=== PATIENT | male | born 1950 | race Caucasian/White ===

== ENCOUNTER 2020-04-22 09:11 | Outpatient (REF) | payer MEDICARE, SELFPAY ==
[2020-04-22 12:13] LABS: Alanine Aminotransferase 13 U/L (0-40); Alkaline Phosphatase 86 U/L (39-117); Anion Gap 15 (12-20); Aspartate Amino Transferase 16 U/L (5-37); Bilirubin Total 0.6 mg/dL (0.0-1.0); Blood Urea Nitrogen 15 mg/dL (9-16); Calcium 9.2 mg/dL (8.4-10.2); Carbon Dioxide 24 mmol/L (22-29); Chloride 102 mmol/L (96-108); Cholesterol 201 mg/dL; Estimated Glomerular Filt Rate > 60; Glucose Fasting 138 mg/dL (60-99); HDL Cholesterol 42 mg/dL; LDL Cholesterol Calculated 142 mg/dl; Potassium 4.4 mmol/l (3.3-5.1); Sodium 137 mmol/L (135-145); Total Protein 7.3 g/dL (6.5-8.0); Triglycerides 87 mg/dL
[2020-04-22 12:37] LABS: Estimated Average Glucose 140 mg/dL; Hemoglobin A1c % 6.5 %
[2020-04-22 19:42] LABS: Creatinine Urine 170.85 mg/dL; Microalbum/Creatinine Ratio Ur 42.7 ug/mg cr
[2020-04-28 17:47] LABS: Testosterone, Free 43.5 pg/mL (35.0-155.0); Testosterone, Total 223 ng/dL (250-1100)
== END 2020-04-22 09:12 | disposition home or self-care (01) ==
LOC: HO.MANLR 09:11
PROVIDERS: PCP Internal Medicine; Visit Provider Internal Medicine
DX: E11.9 Type 2 diabetes mellitus without complications (principal); E29.1 Testicular hypofunction
CPT/HCPCS: 36415; 80053; 80061; 82043; 83036; 84402; 84403

== ENCOUNTER 2020-06-08 09:14 | Outpatient (REF) | payer MEDICARE, SELFPAY ==
[2020-06-08 11:47] LABS: Estimated Average Glucose 143 mg/dL; Hemoglobin A1c % 6.6 %
[2020-06-15 11:02] LABS: Testosterone, Total 194 ng/dL (250-1100)
== END 2020-06-08 09:15 | disposition home or self-care (01) ==
LOC: HO.MANLR 09:14
PROVIDERS: PCP Internal Medicine; Visit Provider Internal Medicine
DX: E11.9 Type 2 diabetes mellitus without complications (principal); E29.1 Testicular hypofunction
CPT/HCPCS: 36415; 83036; 84402; 84403

== ENCOUNTER 2020-09-13 08:24 | Outpatient (REF) | payer MEDICARE, SELFPAY ==
[2020-09-13 11:59] LABS: Creatinine Urine 26.55 mg/dL; Microalbum/Creatinine Ratio Ur 161.9 ug/mg cr
[2020-09-13 12:06] LABS: Alanine Aminotransferase 16 U/L (0-40); Albumin Level 4.2 g/dL (3.5-5.0); Alkaline Phosphatase 102 U/L (39-117); Anion Gap 16 (12-20); Aspartate Amino Transferase 24 U/L (5-37); Blood Urea Nitrogen 10 mg/dL (9-16); Calcium 9.5 mg/dL (8.4-10.2); Carbon Dioxide 24 mmol/L (22-29); Chloride 102 mmol/L (96-108); Cholesterol 123 mg/dL; Estimated Glomerular Filt Rate > 60; Glucose Fasting 159 mg/dL (60-99); HDL Cholesterol 50 mg/dL; LDL Cholesterol Calculated 60 mg/dl; Potassium 4.1 mmol/L (3.3-5.1); Sodium 138 mmol/L (135-145); Total Protein 7.6 g/dL (6.5-8.0); Triglycerides 67 mg/dL
[2020-09-13 12:17] LABS: Estimated Average Glucose 134 mg/dL; Hemoglobin A1c % 6.3 %
[2020-09-18 09:21] LABS: Testosterone, Free 33.5 pg/mL (35.0-155.0); Testosterone, Total 236 ng/dL (250-1100)
== END 2020-09-13 08:25 | disposition home or self-care (01) ==
LOC: HO.MANLR 08:24
PROVIDERS: PCP Internal Medicine; Visit Provider Internal Medicine
DX: E11.9 Type 2 diabetes mellitus without complications (principal); E29.1 Testicular hypofunction
CPT/HCPCS: 36415; 80053; 80061; 82043; 83036; 84402; 84403

== ENCOUNTER 2020-12-20 10:49 | Outpatient (REF) | payer MEDICARE, SELFPAY ==
[2020-12-20 13:09] LABS: Estimated Average Glucose 146 mg/dL; Hemoglobin A1c % 6.7 %
== END 2020-12-20 10:50 | disposition home or self-care (01) ==
LOC: HO.MANLDS 10:49
PROVIDERS: PCP Internal Medicine; Visit Provider Internal Medicine
DX: E29.1 Testicular hypofunction (principal)
CPT/HCPCS: 36415; 83036

== ENCOUNTER 2021-03-27 09:31 | Outpatient (REF) | payer MEDICARE, SELFPAY ==
[2021-03-27 11:05] LABS: Estimated Average Glucose 148 mg/dL; Hemoglobin A1c % 6.8 %
[2021-03-27 11:37] LABS: Alanine Aminotransferase 20 U/L (0-40); Albumin Level 3.8 g/dL (3.5-5.0); Alkaline Phosphatase 85 U/L (39-117); Anion Gap 13 (12-20); Aspartate Amino Transferase 21 U/L (5-37); Bilirubin Total 0.8 mg/dL (0.0-1.0); Blood Urea Nitrogen 18 mg/dL (9-16); Calcium 9.3 mg/dL (8.4-10.2); Carbon Dioxide 23 mmol/L (22-29); Chloride 106 mmol/L (96-108); Cholesterol 122 mg/dL; Estimated Glomerular Filt Rate > 60; Glucose Fasting 150 mg/dL (60-99); HDL Cholesterol 40 mg/dL; LDL Cholesterol Calculated 65 mg/dl; Potassium 4.4 mmol/L (3.3-5.1); Sodium 138 mmol/L (135-145); Total Protein 7.4 g/dL (6.5-8.0); Triglycerides 87 mg/dL
[2021-03-27 18:33] LABS: Creatinine Urine 152.73 mg/dL; Microalbum/Creatinine Ratio Ur 43.2 ug/mg cr
[2021-03-29 06:12] LABS: Sex Hormone Binding Globulin 36 nmol/L (22-77)
[2021-04-03 14:32] LABS: Testosterone, Free 31.2 pg/mL (30.0-135.0); Testosterone, Total 212 ng/dL (250-1100)
== END 2021-03-27 09:32 | disposition home or self-care (01) ==
LOC: HO.MANLDS 09:31
PROVIDERS: PCP Internal Medicine; Visit Provider Internal Medicine
DX: E11.9 Type 2 diabetes mellitus without complications (principal); E29.1 Testicular hypofunction
CPT/HCPCS: 36415; 80053; 80061; 82043; 83036; 84270; 84402; 84403

== ENCOUNTER 2021-08-01 10:00 | Outpatient (REF) | payer MEDICARE, SELFPAY ==
[2021-08-01 11:42] LABS: Estimated Average Glucose 148 mg/dL; Hemoglobin A1c % 6.8 %
[2021-08-06 16:05] LABS: Testosterone, Free 28.9 pg/mL (30.0-135.0); Testosterone, Total 185 ng/dL (250-1100)
== END 2021-08-01 10:01 | disposition home or self-care (01) ==
LOC: HO.MANLDS 10:00
PROVIDERS: PCP Internal Medicine; Visit Provider Internal Medicine
DX: E11.9 Type 2 diabetes mellitus without complications (principal); E29.1 Testicular hypofunction
CPT/HCPCS: 36415; 83036; 84402; 84403

== ENCOUNTER 2021-11-01 09:59 | Outpatient (REF) | payer MEDICARE, SELFPAY ==
[2021-11-01 11:14] LABS: MANUAL DIFF FLAG NO
[2021-11-01 11:36] LABS: Basophils Absolute Auto 0.1 X10*3/uL (0.0-0.2); Basophils Percent Auto 1.1 % (0-2); Eosinophils Absolute Auto 0.5 X10*3/uL (0.0-0.4); Eosinophils Percent Auto 5.4 % (0-4); Hematocrit 40.1 % (42.0-52.0); Hemoglobin 13.6 g/dl (14.0-18.0); Imm Gran Abs Auto 0.03 X10*3/uL (0.00-0.03); Imm Gran Pct Auto 0.4 % (0.0-0.4); Lymphocytes Absolute Auto 2.2 X10*3/uL (1.2-4.9); Lymphocytes Percent Auto 26.2 % (20-40); Mean Corpuscular HGB Conc 33.9 g/dl (31.0-36.0); Mean Corpuscular Hemoglobin 28.8 pg (27.0-33.0); Mean Corpuscular Volume 84.8 fL (80.0-98.0); Mean Platelet Volume 10.8 fL (9.4-12.4); Monocytes Absolute Auto 0.8 X10*3/uL (0.1-1.2); Monocytes Percent Auto 9.1 % (2-11); Neutrophils Absolute Auto 4.8 x10*3/uL (2.0-8.3); Neutrophils Percent Auto 57.8 % (45-73); Platelet Count 349 X10*3/uL (160-400); Red Blood Count 4.73 X10*6/uL (4.60-5.80); Red Cell Distribution Width 14.6 % (11.0-16.0); White Blood Count 8.3 X10*3/uL (4.8-10.8)
[2021-11-01 11:37] LABS: Estimated Average Glucose 137 mg/dL; Hemoglobin A1c % 6.4 %
[2021-11-01 12:16] LABS: Alanine Aminotransferase 21 U/L (0-40); Albumin Level 4.1 g/dL (3.5-5.0); Alkaline Phosphatase 85 U/L (39-117); Anion Gap 14 (12-20); Aspartate Amino Transferase 25 U/L (5-37); Bilirubin Total 1.2 mg/dL (0.0-1.0); Blood Urea Nitrogen 15 mg/dL (9-16); Calcium 9.2 mg/dL (8.4-10.2); Carbon Dioxide 24 mmol/L (22-29); Chloride 105 mmol/L (96-108); Cholesterol 116 mg/dL; Estimated Glomerular Filt Rate > 60; Glucose Random 141 mg/dL (60-115); HDL Cholesterol 44 mg/dL; LDL Cholesterol Calculated 59 mg/dl; Potassium 4.8 mmol/L (3.3-5.1); Sodium 138 mmol/L (135-145); Total Protein 7.4 g/dL (6.5-8.0); Triglycerides 69 mg/dL
== END 2021-11-01 10:00 | disposition home or self-care (01) ==
LOC: HO.MANLDS 09:59
PROVIDERS: Visit Provider Internal Medicine
DX: Z12.5 Encounter for screening for malignant neoplasm of prostate (principal); E11.9 Type 2 diabetes mellitus without complications; I10 Essential (primary) hypertension
CPT/HCPCS: 36415; 80053; 80061; 83036; 84153; 85025

== ENCOUNTER 2022-04-04 10:58 | Outpatient (REF) | payer MEDICARE, SELFPAY ==
[2022-04-04 14:22] LABS: Estimated Average Glucose 140 mg/dL; Hemoglobin A1c % 6.5 %
[2022-04-04 14:29] LABS: Alanine Aminotransferase 26 U/L (0-40); Albumin Level 4.2 g/dL (3.5-5.0); Alkaline Phosphatase 92 U/L (39-117); Anion Gap 13 (12-20); Aspartate Amino Transferase 27 U/L (5-37); Bilirubin Total 0.9 mg/dL (0.0-1.0); Blood Urea Nitrogen 15 mg/dL (9-16); Calcium 9.3 mg/dL (8.4-10.2); Carbon Dioxide 26 mmol/L (22-29); Chloride 101 mmol/L (96-108); Cholesterol 118 mg/dL; Estimated Glomerular Filt Rate > 60; Glucose Random 189 mg/dL (60-115); HDL Cholesterol 45 mg/dL; LDL Cholesterol Calculated 58 mg/dl; Potassium 4.4 mmol/L (3.3-5.1); Sodium 136 mmol/L (135-145); Total Protein 7.6 g/dL (6.5-8.0); Triglycerides 79 mg/dL
[2022-04-04 14:53] LABS: Creatinine Urine 141.25 mg/dL; Microalbum/Creatinine Ratio Ur 152.9 ug/mg cr
[2022-04-11 14:18] LABS: Testosterone, Free 25.3 pg/mL (30.0-135.0); Testosterone, Total 234 ng/dL (250-1100)
== END 2022-04-04 10:59 | disposition home or self-care (01) ==
LOC: HO.MANLDS 10:58
PROVIDERS: Internal Medicine; Visit Provider Physician Assistant
DX: E11.9 Type 2 diabetes mellitus without complications (principal); E29.1 Testicular hypofunction
CPT/HCPCS: 36415; 80053; 80061; 82043; 83036; 84402; 84403

== ENCOUNTER 2022-07-03 10:39 | Outpatient (REF) | payer MEDICARE, SELFPAY ==
[2022-07-03 13:19] LABS: Estimated Average Glucose 157 mg/dL; Hemoglobin A1c % 7.1 %
[2022-07-09 11:03] LABS: Testosterone, Free 27.6 pg/mL (30.0-135.0); Testosterone, Total 196 ng/dL (250-1100)
== END 2022-07-03 10:40 | disposition home or self-care (01) ==
LOC: HO.MANLDS 10:39
PROVIDERS: Visit Provider Internal Medicine
DX: E11.9 Type 2 diabetes mellitus without complications (principal); E29.1 Testicular hypofunction
CPT/HCPCS: 36415; 83036; 84402; 84403

== ENCOUNTER 2022-10-10 08:48 | Outpatient (REF) | payer MEDICARE, SELFPAY ==
[2022-10-16 13:39] LABS: Testosterone, Free 25.1 pg/mL (30.0-135.0); Testosterone, Total 204 ng/dL (250-1100)
== END 2022-10-10 08:49 | disposition home or self-care (01) ==
LOC: HO.MANLDS 08:48
PROVIDERS: Visit Provider Physician Assistant
DX: I10 Essential (primary) hypertension (principal); Z12.5 Encounter for screening for malignant neoplasm of prostate; E11.9 Type 2 diabetes mellitus without complications
CPT/HCPCS: 36415; 80053; 80061; 83036; 84153; 84402; 84403; 85025

== ENCOUNTER 2023-02-05 09:20 | Outpatient (REF) | payer MEDICARE, SELFPAY ==
[2023-02-05 13:23] LABS: MANUAL DIFF FLAG NO
[2023-02-05 13:36] LABS: Basophils Absolute Auto 0.1 X10*3/uL (0.0-0.2); Eosinophils Absolute Auto 0.8 X10*3/uL (0.0-0.4); Eosinophils Percent Auto 7.6 % (0-4); Hematocrit 47.5 % (42.0-52.0); Hemoglobin 15.4 g/dl (14.0-18.0); Imm Gran Abs Auto 0.03 X10*3/uL (0.00-0.03); Imm Gran Pct Auto 0.3 % (0.0-0.4); Lymphocytes Absolute Auto 2.1 X10*3/uL (1.2-4.9); Lymphocytes Percent Auto 20.4 % (20-40); Mean Corpuscular HGB Conc 32.4 g/dl (31.0-36.0); Mean Corpuscular Hemoglobin 28.1 pg (27.0-33.0); Mean Corpuscular Volume 86.5 fL (80.0-98.0); Mean Platelet Volume 11.2 fL (9.4-12.4); Monocytes Absolute Auto 0.8 X10*3/uL (0.1-1.2); Monocytes Percent Auto 7.9 % (2-11); Neutrophils Absolute Auto 6.5 x10*3/uL (2.0-8.3); Neutrophils Percent Auto 62.8 % (45-73); Platelet Count 404 X10*3/uL (160-400); Red Blood Count 5.49 X10*6/uL (4.60-5.80); Red Cell Distribution Width 14.3 % (11.0-16.0); White Blood Count 10.4 X10*3/uL (4.8-10.8)
[2023-02-05 13:53] LABS: Alanine Aminotransferase 17 U/L (0-40); Albumin Level 4.2 g/dL (3.5-5.0); Alkaline Phosphatase 90 U/L (39-117); Anion Gap 18 (12-20); Aspartate Amino Transferase 21 U/L (5-37); Bilirubin Total 1.1 mg/dL (0.0-1.0); Blood Urea Nitrogen 12 mg/dL (9-16); Calcium 10.3 mg/dL (8.4-10.2); Carbon Dioxide 26 mmol/L (22-29); Chloride 101 mmol/L (96-108); Cholesterol 100 mg/dL (<200); Estimated Glomerular Filt Rate > 60; Glucose Random 133 mg/dL (60-115); HDL Cholesterol 35 mg/dL (>40); LDL Cholesterol Calculated 50 mg/dL (<100); Potassium 4.7 mmol/L (3.3-5.1); Sodium 140 mmol/L (135-145); Total Protein 8.4 g/dL (6.5-8.0); Triglycerides 75 mg/dL (<150)
[2023-02-05 14:12] LABS: Prostate Specific Antigen 0.27 ng/mL (<0.05-4.0)
[2023-02-10 15:09] LABS: Testosterone, Free 8.6 pg/mL (30.0-135.0); Testosterone, Total 85 ng/dL (250-1100)
== END 2023-02-05 09:21 | disposition home or self-care (01) ==
LOC: HO.MANLDS 09:20
PROVIDERS: Visit Provider Physician Assistant
DX: I10 Essential (primary) hypertension (principal); Z12.5 Encounter for screening for malignant neoplasm of prostate
CPT/HCPCS: 36415; 80053; 80061; 84153; 84402; 84403; 85025

== ENCOUNTER 2023-05-03 11:01 | Outpatient (REF) | payer MEDICARE, SELFPAY ==
[2023-05-03 13:13] LABS: MANUAL DIFF FLAG NO
[2023-05-03 13:30] LABS: Basophils Absolute Auto 0.1 X10*3/uL (0.0-0.2); Basophils Percent Auto 0.9 % (0-2); Eosinophils Absolute Auto 0.3 X10*3/uL (0.0-0.4); Eosinophils Percent Auto 3.2 % (0-4); Hematocrit 47.7 % (42.0-52.0); Hemoglobin 15.6 g/dl (14.0-18.0); Imm Gran Abs Auto 0.02 X10*3/uL (0.00-0.03); Imm Gran Pct Auto 0.2 % (0.0-0.4); Lymphocytes Absolute Auto 1.7 X10*3/uL (1.2-4.9); Lymphocytes Percent Auto 19.5 % (20-40); Mean Corpuscular HGB Conc 32.7 g/dl (31.0-36.0); Mean Corpuscular Hemoglobin 26.9 pg (27.0-33.0); Mean Corpuscular Volume 82.2 fL (80.0-98.0); Mean Platelet Volume 10.9 fL (9.4-12.4); Monocytes Absolute Auto 0.7 X10*3/uL (0.1-1.2); Monocytes Percent Auto 7.7 % (2-11); Neutrophils Absolute Auto 5.8 x10*3/uL (2.0-8.3); Neutrophils Percent Auto 68.5 % (45-73); Platelet Count 321 X10*3/uL (160-400); Red Cell Distribution Width 15.4 % (11.0-16.0); White Blood Count 8.5 X10*3/uL (4.8-10.8)
[2023-05-03 13:38] LABS: Alanine Aminotransferase 15 U/L (0-40); Albumin Level 3.9 g/dL (3.5-5.0); Alkaline Phosphatase 84 U/L (39-117); Anion Gap 18 (12-20); Aspartate Amino Transferase 24 U/L (5-37); Blood Urea Nitrogen 10 mg/dL (9-16); Calcium 9.3 mg/dL (8.4-10.2); Carbon Dioxide 22 mmol/L (22-29); Chloride 102 mmol/L (96-108); Cholesterol 91 mg/dL (<200); Estimated Average Glucose 137 mg/dL; Estimated Glomerular Filt Rate > 60; Glucose Random 119 mg/dL (60-115); HDL Cholesterol 35 mg/dL (>40); Hemoglobin A1c % 6.4 % (<6.0); LDL Cholesterol Calculated 41 mg/dL (<100); Potassium 3.8 mmol/L (3.3-5.1); Sodium 138 mmol/L (135-145); Total Protein 7.9 g/dL (6.5-8.0); Triglycerides 75 mg/dL (<150)
[2023-05-03 14:04] LABS: Prostate Specific Antigen 1.34 ng/mL (<0.05-4.0)
[2023-05-03 14:16] LABS: Creatinine Urine 155.64 mg/dL; Microalbum/Creatinine Ratio Ur 73.2 ug/mg cr (<30)
[2023-05-08 15:58] LABS: Testosterone, Free 417.4 pg/mL (30.0-135.0); Testosterone, Total 1624 ng/dL (250-1100)
== END 2023-05-03 11:02 | disposition home or self-care (01) ==
LOC: HO.MANLDS 11:01
PROVIDERS: Internal Medicine; Visit Provider Physician Assistant
DX: E11.9 Type 2 diabetes mellitus without complications (principal); I10 Essential (primary) hypertension; Z12.5 Encounter for screening for malignant neoplasm of prostate
CPT/HCPCS: 36415; 80053; 80061; 82043; 82570; 83036; 84153; 84402; 84403; 85025

== ENCOUNTER 2023-08-05 11:39 | Outpatient (REF) | payer MEDICARE, SELFPAY ==
[2023-08-05 13:11] LABS: MANUAL DIFF FLAG NO
[2023-08-05 13:22] LABS: Basophils Absolute Auto 0.1 X10*3/uL (0.0-0.2); Basophils Percent Auto 1.2 % (0-2); Eosinophils Absolute Auto 0.3 X10*3/uL (0.0-0.4); Eosinophils Percent Auto 4.2 % (0-4); Hematocrit 42.8 % (42.0-52.0); Hemoglobin 14.6 g/dl (14.0-18.0); Imm Gran Abs Auto 0.01 X10*3/uL (0.00-0.03); Imm Gran Pct Auto 0.2 % (0.0-0.4); Lymphocytes Absolute Auto 2.1 X10*3/uL (1.2-4.9); Lymphocytes Percent Auto 31.1 % (20-40); Mean Corpuscular HGB Conc 34.1 g/dl (31.0-36.0); Mean Corpuscular Hemoglobin 26.9 pg (27.0-33.0); Mean Corpuscular Volume 78.8 fL (80.0-98.0); Mean Platelet Volume 10.5 fL (9.4-12.4); Monocytes Absolute Auto 0.6 X10*3/uL (0.1-1.2); Monocytes Percent Auto 9.4 % (2-11); Neutrophils Absolute Auto 3.6 x10*3/uL (2.0-8.3); Neutrophils Percent Auto 53.9 % (45-73); Platelet Count 283 X10*3/uL (160-400); Red Blood Count 5.43 X10*6/uL (4.60-5.80); Red Cell Distribution Width 16.3 % (11.0-16.0); White Blood Count 6.6 X10*3/uL (4.8-10.8)
[2023-08-05 13:44] LABS: Estimated Average Glucose 154 mg/dL
[2023-08-05 14:10] LABS: Alanine Aminotransferase 20 U/L (0-40); Albumin Level 3.8 g/dL (3.5-5.0); Alkaline Phosphatase 75 U/L (39-117); Anion Gap 11 (12-20); Aspartate Amino Transferase 25 U/L (5-37); Blood Urea Nitrogen 11 mg/dL (9-16); Calcium 9.4 mg/dL (8.4-10.2); Carbon Dioxide 29 mmol/L (22-29); Chloride 101 mmol/L (96-108); Cholesterol 107 mg/dL (<200); Estimated Glomerular Filt Rate > 60; Glucose Random 138 mg/dL (60-115); HDL Cholesterol 51 mg/dL (>40); LDL Cholesterol Calculated 47 mg/dL (<100); Potassium 3.7 mmol/L (3.3-5.1); Sodium 137 mmol/L (135-145); Total Protein 7.6 g/dL (6.5-8.0); Triglycerides 45 mg/dL (<150)
[2023-08-05 14:32] LABS: Prostate Specific Antigen 0.59 ng/mL (<0.05-4.0)
[2023-08-09 21:37] LABS: Testosterone, Free 56.4 pg/mL (30.0-135.0); Testosterone, Total 338 ng/dL (250-1100)
== END 2023-08-05 11:40 | disposition home or self-care (01) ==
LOC: HO.MANLDS 11:39
PROVIDERS: Visit Provider Physician Assistant
DX: Z12.5 Encounter for screening for malignant neoplasm of prostate (principal); I10 Essential (primary) hypertension
CPT/HCPCS: 36415; 80053; 80061; 83036; 84153; 84402; 84403; 85025

== ENCOUNTER 2023-11-18 09:17 | Outpatient (REF) | payer MEDICARE, SELFPAY ==
[2023-11-19 07:53] LABS: Estimated Average Glucose 137 mg/dL; Hemoglobin A1c % 6.4 % (<6.0)
[2023-11-24 00:54] LABS: Testosterone, Free 26.6 pg/mL (30.0-135.0); Testosterone, Total 197 ng/dL (250-1100)
== END 2023-11-18 09:18 | disposition home or self-care (01) ==
LOC: HO.MANLDS 09:17
PROVIDERS: Visit Provider Internal Medicine
DX: E11.9 Type 2 diabetes mellitus without complications (principal)
CPT/HCPCS: 36415; 83036; 84402; 84403

== ENCOUNTER 2024-02-28 09:44 | Outpatient (REF) | payer MEDICARE, SELFPAY ==
[2024-02-28 13:32] LABS: Estimated Average Glucose 146 mg/dL; Hemoglobin A1C 200.1726 umol/L; Hemoglobin A1c % 6.7 % (<6.0)
== END 2024-02-28 09:45 | disposition home or self-care (01) ==
LOC: HO.MANLDS 09:44
PROVIDERS: Visit Provider Internal Medicine
DX: E11.9 Type 2 diabetes mellitus without complications (principal)
CPT/HCPCS: 36415; 83036

== ENCOUNTER 2024-06-01 11:33 | Outpatient (REF) | payer MEDICARE, SELFPAY ==
--- OUTSIDE RECORDS SUMMARY | 2024-06-01 13:21 | XMS_ITS | Data Portability ---
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) MDM MODERATE MUST MEET 2 OUT OF 3 ELEMENTS: PROBLEMS, DATA OR RISK ELEMENT 1: PROBLEMS ADDRESSED 1 OR MORE CHRONIC ILLNESS WITH EXACERBATION OR 2 OR MORE STABLE CHRONIC ILLNESSES OR 1 UNDIAGNOSED NEW PROBLEM OR 1 ACUTE ILLNESS W/SYMPTOMS OR 1 ACUTE COMPLICATED INJURY ELEMENT 2: DATA MUST MEET 1 OF 3 CATEGORIES CATEGORY 1: REVIEW OF PRIOR EXTERNAL NOTES, REVIEW OF RESULTS, ORDERING OF EACH TEST, ASSESSMENT REQUIRING INDEPENDENT HISTORIAN OR CATEGORY 2: INDEPENDENT INTERPRETATION OF TESTS BY ANOTHER PHYSICIAN OR SPECIALIST OR CATEGORY 3: DISCUSSION OF MGT OR TEST INTERPRETATION W/EXTERNAL PHYSICIAN OR SPECIALIST ELEMENT 3: RISK RISK OF COMPLICATIONS AND/OR MORBIDITY OR MORTALITY OF PATIENT MANAGEMENT PROVIDER MUST THOROUGHLY DOCUMENT EACH ELEMENT THAT IS COVERED Not available 08/09/2023 09:52:02 11/20/2023 11/20/2023 Patient presente d to office today for their Medicare Annual Wellness Visit. Education was provided on healthy nutrition, including a diet rich in fruits and vegetables, minimizing simple carbohydrates, salt, and saturated fats. Encouraged regular cardiovascular exercise such as walking at least 30 minutes daily, 5 times per week. Emphasized preventive health measures and educated pt on fall prevention and community-based lifestyle interventions to help reduce health risks and promote healthy living. 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) MDM MODERATE MUST MEET 2 OUT OF 3 ELEMENTS: PROBLEMS, DATA OR RISK ELEMENT 1: PROBLEMS ADDRESSED 1 OR MORE CHRONIC ILLNESS WITH EXACERBATION OR 2 OR MORE STABLE CHRONIC ILLNESSES OR 1 UNDIAGNOSED NEW PROBLEM OR 1 ACUTE ILLNESS W/SYMPTOMS OR 1 ACUTE COMPLICATED INJURY ELEMENT 2: DATA MUST MEET 1 OF 3 CATEGORIES CATEGORY 1: REVIEW OF PRIOR EXTERNAL NOTES, REVIEW OF RESULTS, ORDERING OF EACH TEST, ASSESSMENT REQUIRING INDEPENDENT HISTORIAN OR CATEGORY 2: INDEPENDENT INTERPRETATION OF TESTS BY ANOTHER PHYSICIAN OR SPECIALIST OR CATEGORY 3: DISCUSSION OF MGT OR TEST INTERPRETATION W/EXTERNAL PHYSICIAN OR SPECIALIST ELEMENT 3: RISK RISK OF COMPLICATIONS AND/OR MORBIDITY OR MORTALITY OF PATIENT MANAGEMENT PROVIDER MUST THOROUGHLY DOCUMENT EACH ELEMENT THAT IS COVERED Not available 02/28/2024 09:31:19 Plan of Treatment Reminders Order Date Submit Date Provider Last Modified By Organization Details Last Modified Time Details Appointments FOLLOW UP 15 2024 09:15A M DR QUINTANA Not available Not available Not available MEDICARE ANNUAL WELLNESS 2024 10:00A M DR QUINTANA Not available Not available Not available Lab HbA1c (hemoglob in A1c), blood 2023 [facility], [address] [place] [address], [id number], 02/28/2024 09:34:08 hemoglobi n, gastroint estinal, stool 2023 024 [facility], [address] [place] [address], [id number], 03/03/2024 08:25:13 CBC w/ auto diff 2023 024 [facility], [address] [place] [address], [id number], 02/26/2024 13:00:16 CMP, serum or plasma 2023 024 [facility], [address] [place] [address], [id number], 02/26/2024 13:00:16 Referral None recorded. Procedures None recorded. Surgeries None recorded. Imaging US, scrotum - possible hernia into the scrotum? vs malignanc y 2023 024 [facility], [address] [place], [address], 05/22/2023 10:21:22 Medication Orders None recorded. Patient TargetsNo targets recorded. Patient Instructions Encounter Date Encounter Id Patient Instructions Last Modified By Organization Details Last Modified Time 08/09/2023 [id number] type 2 diabetes: care instructions Not available 08/09/2023 09:53:37 11/20/2023 [id number] leg and ankle edema: care instructions Not available 11/20/2023 09:59:51 stroke: care instructions Not available 11/20/2023 09:59:51 high blood pressure: care instructions Not available 11/20/2023 09:59:51 learning about high blood pressure Not available 11/20/2023 09:59:51 advance care planning: care instructions [email or web address] Not available 11/20/2023 09:59:51 Discussed and explained advance directives such as standard forms to the {{patient* caregi pratibha patient and caregiver}}. Face to face discussion lasted for a duration of 10___ minutes. Not available 11/20/2023 09:59:42 02/28/2024 [id number] stroke: care instructions Not available 02/28/2024 09:33:01 Reason for Referral None Reported. Results Created Date Observation Date Name Description Value Unit Range Abnormal Flag Note LastModifiedBy Organization Detail LastModifiedTime 05/23/19 24 05/23/2023 US, arelyot um No observ ation record ed. [facility] [address] [place], [address], 05/24/2023 09:06:15 Result Notes None recorded. 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 27389996 Active 2019 Not Available [facility] 2 12:45:13 Impaired fasting glycemia 218041670 Completed 201905/31/2020 William Quintana, DO [address] [place], [address], [facility] 1 11:56:05 Diabetes mellitus 73909609 Active 2020 type 2 diabetes , last check 05/07/20 was 6.7% Not Available [facility] 2 12:45:13 Testoste sherice level below referenc e range 857589005 Active 2021 William Quintana, DO [address] [place] [address], [address], [facility] 2 14:52:08 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 264130479 Active 2020 HELEN WILLSON [address] [place] [address], [address], [facility] 2 11:08:00 Type 2 diabetes mellitus without complica tion 573295897 Active 2023 William Quintana, DO [address] [place] [address], [address], [facility] 4 09:56:16 Cerebrov ascular accident 948822804 Active 2023 William Quintana, DO [address] [place] [address], [address], [facility] 4 09:56:16 Benign prostati c hyperpla chiqui 172686252 Active 2023 William Quintana, DO [address] [place] [address], [address], [facility] 4 09:56:35 Pain in testicle 55907275 Active 2023 HELEN WILLSON [address] [place], [address], [facility] 4 11:57:16 Epididym itis 18974134 Active 2023 HELEN WILLSON [address] [place] [address], [address], [facility] 4 13:22:48 Hydrocel e of testis 22602179 Active 2023 HELEN WILLSON [address] [place], [address], [facility] 4 13:58:43 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 screenin g 152555402 Active 2023 William Quintana, DO [address] [place] [address], [address], [facility] 4 22:01:44 Bursitis of olecrano n of right elbow 3131751407 36294 Active 2023 William Quintana DO [address] [place] [address], [address], [facility] 4 12:40:58 Effusion of olecrano n bursa of right elbow 7754353960 960881 Active 2023 William Quintana DO [address] [place] [address], [address], [facility] 4 12:41:24 [facility]ia [facility] hyperten rusty 97512637 Active 2017 Not Available [facility] 2 12:45:13 Transien t ischemia 36970388 Active 2017 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 , date unknown) Not Available [facility] 2 12:45:13 Hypergly cemia 55756879 Completed 201708/04/2018 William Quintana DO [address] [place] [address], [address], [facility] 9 12:38:54 Impaired fasting glycemia 135315428 Completed 201708/04/2018 William Quintana DO [address] [place] [address], [address], [facility] 1 11:56:05 Disorder of lumbar disc 136095811 Active 2017 L1-L2 disc disease, s/p surgery Not Available [facility] 2 12:45:13 Hypogona dism 89860730 Active 2017 Not Available [facility] 2 12:45:13 Gout 67385607 Active 2017 Not Available [facility] 2 12:45:13 Obstruct edith sleep apnea syndrome 55245511 Active 2017 Not Available [facility] 2 12:45:13 Problem Notes None recorded. Procedures Surgical History Date Name Laterality Status Provider Name and Address Organization Details Recorded Time 5 Colonoscopy completed Hernandez Quintana [facility] 05/06/2024 14:08:34 2 Cataract Surgery completed Latonia Lafleur [facility] 02/03/2024 09:56:24 0 Colonoscopy completed Loulou Zavala [facility] 03/23/2019 08:44:34 Imaging Results Imaging Date Name Status LastModified by Organiz ation Details LastModified Time 05/23/2023 US, scrotum completed [email or web address] [place], [place] [address] [place], [address], 05/24/2023 09:06:15 Procedure Notes None recorded. Medical Equipment None Reported. Allergies Allergen ID Allergen Name Allergen Category Reaction Reaction Severity Criticality Documentation Date Start Date Code Code System Note Provider Name and Address Organization Details Recorded Time 7750 Ozempic medicatio n diarrhea moderate Not available 05/08/2023 RxNorm Willima Quintana, DO [address] [place], [address], [facility] 4 10:00:03 Medications Name Sig Start Date Stop Date Status Note LastModified by Organization Details LastModified Time amoxicillin 500 mg capsule TAKE 1 CAPSULE BY MOUTH THREE TIMES DAILY FOR 7 DAYS 08/04 completed Not Available Not Available Not Available atorvastati n 80 mg tablet TAKE 1 TABLET(80 MG) BY MOUTH EVERY NIGHT AT BEDTIME active Not Available Not Available No t Available clindamycin HCl 300 mg capsule 09/06 completed Not Available Not Available Not Available lisinopril 20 mg-hydrochl orothiazide 12.5 mg tablet TAKE 1 TABLET BY MOUTH TWICE DAILY 01/05 completed Not Available Not Available Not Available azithromyci n 250 mg tablet 09/06 completed Not Available Not Available Not Available IBU 800 mg tablet Take 1 tablet 3 times a day by oral route for 30 days. 12/23 completed Not Available Not Available Not Available hydrocodone 5 mg-acetamin ophen 325 mg tablet Take 1 tablet every 6 hours by oral route as needed for 7 days. 01/05 completed Not Available Not Available Not Available meloxicam 15 mg tablet Take one tablet for pain. 12/23 completed Not Available Not Available Not Available lisinopril 20 mg tablet TAKE 1 TABLET BY MOUTH TWICE DAILY 2024 active Not Available Not Available Not Avai lable clopidogrel 75 mg tablet Take 1 tablet every day by oral route for 20 days. 05/08 completed Not Available Not Available Not Available ciprofloxac in 500 mg tablet TAKE 1 TABLET BY MOUTH EVERY 12 HOURS FOR 10 DAYS 08/08 completed Not Available Not Available Not Available morphine ER 30 mg tablet,exte nded release TAKE 1 TABLET BY MOUTH TWICE DAILY. DO NOT DRIVE WHILE TAKING THIS MEDICATIO N 05/13 completed Not Available Not Available Not Available aspirin 81 mg tablet,radha yed release TAKE 1 TABLET BY MOUTH EVERY DAY active Not Available Not Available No t Available terbinafine HCl 250 mg tablet TAKE 1 TABLET BY MOUTH EVERY DAY active Not Available Not Available No t Available tamsulosin 0.4 mg capsule TAKE 1 CAPSULE BY MOUTH EVERY DAY active Not Available Not Available No t Available amlodipine 10 mg tablet TAKE 1 TABLET BY MOUTH EVERY DAY 2024 active Not Available Not Available Not Avai lable morphine 30 mg immediate release tablet TAKE 1 TABLET BY MOUTH TWICE DAILY. DO NOT DRIVE WHILE TAKING THIS MEDICATIO N 05/13 completed Not Available Not Available Not Available indomethaci n 25 mg capsule TAKE 1 CAPSULE BY MOUTH THREE TIMES DAILY DIRECTED. DO NOT TAKE WITH PREDNISON E active Not Available Not Available No t Available indomethaci n 50 mg capsule 04/22 completed Not Available Not Available Not Available diclofenac sodium 75 mg tablet,radha yed release Take 1 tablet twice a day by oral route for 30 days. 12/30 completed Not Available Not Available Not Available halobetasol propionate 0.05 % topical cream APPLY TOPICALLY TO THE AFFECTED AREA TWICE DAILY NEEDED active Not Available Not Available No t Available colchicine 0.6 mg tablet 1 tab po tid for 7 days please 08/04 completed prn Not Available Not Available Not Available ketoconazol e 2 % topical cream APPLY TOPICALLY TO THE AFFECTED AREA 1 TIME AT BEDTIME active Not Available Not Available No t Available fluticasone propionate 50 mcg/actuati on nasal spray,suspe nsion 06/23 completed Not Available Not Available Not Available naproxen 500 mg tablet TK 1 T PO BID WITH FOOD 05/13 completed Not Available Not Available Not Available oxycodone 5 mg tablet TAKE 1 TABLET BY MOUTH EVERY 4 HOURS NEEDED FOR PAIN 08/04 completed Not Available Not Available Not Available testosteron e 12.5 mg/1.25 gram per pump actuation (1%) transdermal gel APPLY 2 PUMPS TOPICALLY TO UPPER ARM OR SHOULDER EVERY DAY active Not Available Not Available No t Available chlorhexidi ne gluconate 0.12 % mouthwash 09/06 completed Not Available Not Available Not Available testosteron e 20.25 mg/1.25 gram per pump act.(1.62 %) transdermal gel Apply 2 pumps every day by transderm . route for 30 days. 12/30 completed Not Available Not Available Not Available Easy Touch Alcohol Prep Pads USE DIRECTED PRIOR TO INJECTION active Not Available Not Available No t Available Jardiance 10 mg tablet TAKE 1 TABLET BY MOUTH EVERY DAY active Not Available Not Available No t Available Ozempic 1 mg/dose (4 mg/3 mL) subcutaneou s pen injector 05/08 completed Not Available Not Available Not Available Ozempic 0.25 mg or 0.5 mg (2 mg/3 mL) subcutaneou s pen injector INJECT 0.25 MG UNDER THE SKIN ONCE WEEKLY FOR 4 WEEKS THEN MAY INCREASE TO 0.5 MG ONCE WEEKLY TOLERATED 05/08 completed Not Available Not Available Not Available Vitals Date Recorded Body height Body mass index (BMI) Body weight Heart rate Oxygen saturation Oxygen saturation in Arterial blood by Pulse oximetry Systolic blood pressure Diastolic blood pressure Provider Name and Address Organization Details Last Updated DateTime 4 182.88 cm 36.3 kg/m2 836752. 76 g 89 /min 97 % 97 % 132 mm[Hg] 68 mm[Hg] Marie Miranda [facility] 4 11:43:09 Date Recorded Body height Body mass index (BMI) Body weight Heart rate Oxygen saturation Oxygen saturation in Arterial blood by Pulse oximetry Systolic blood pressure Diastolic blood pressure Provider Name and Address Organization Details Last Updated DateTime 4 182.88 cm 36.8 kg/m2 229236. 53 g 82 /min 94 % 94 % 148 mm[Hg] 78 mm[Hg] Marie Miranda [facility] 4 09:38:42 Date Recorded Body height Body mass index (BMI) Body weight Heart rate Oxygen saturation Oxygen saturation in Arterial blood by Pulse oximetry Systolic blood pressure Diastolic blood pressure Provider Name and Address Organization Details Last Updated DateTime 4 182.88 cm 36.1 kg/m2 209140. 57 g 72 /min 96 % 96 % 138 mm[Hg] 82 mm[Hg] William Quintana, DO [address] [place], [address] [place] [address] [facility] 4 09:40:56 Date Recorded Body height Body mass index (BMI) Body weight Oxygen saturation Oxygen saturation in Arterial blood by Pulse oximetry Heart rate Systolic blood pressure Diastolic blood pressure Provider Name and Address Organization Details Last Updated DateTime 4 182.88 cm 35.7 kg/m2 929644. 79 g 96 % 96 % 86 /min 128 mm[Hg] 74 mm[Hg] Marie Miranda [facility] 4 09:11:05 Social History Question Answer Notes LastModified by Organizat ion Details LastModified Time Tobacco Smoking Status Former Smoker Ximena fernandes [facility] 05/13/2020 11:53:50 What Was The Date Of Your Most Recent Tobacco Screening? 02/28/2024 [email or web address] Information not available 02/28/2024 How Much Tobacco Do You Smoke? No Information not available 09/16/2020 Do You Or Have You Ever Used Any Other Forms Of Tobacco Or Nicotine? No Information not available 07/04/2022 Sex: Unknown Functional Status None recorded. Mental Status None recorded. Family History Nothing Reported. Medical History No medical history recorded. Immunizations Vaccine Type Date Status Note Provider Nam e and Address Organization Details Recorded Time COVID-19, mRNA, LNP-S, PF, 30 mcg/0.3 mL dose 2 completed HELEN WILLSON [address] [place] [address], [address], [facility] 04/17/2021 12:56:45 Influenza, split virus, quadrivalent, preservative 2 completed HELEN WILLSON [address] [place] [address], [address], [facility] 04/17/2021 12:56:55 zoster recombinant 2 completed HELEN WILLSON [address] [place] [address], [address], [facility] 06/20/2021 13:35:13 COVID-19, mRNA, LNP-S, PF, 30 mcg/0.3 mL dose 1 completed William Quintana DO [address] [place] [address], [address], [facility] 09/16/2020 09:34:37 COVID-19, mRNA, LNP-S, PF, 30 mcg/0.3 mL dose 1 completed William Quintana DO [address] [place] [address], [address], [facility] 09/16/2020 09:34:46 Past Encounters Encounter ID Performer Location Encounter Start Date Encounter Closed Date Diagnosis/Indication Diagnosis SNOMED-CT Code Diagnosis ICD10 Code Diagnosis Note [id number] William Quintana DO [facility] [address] [place] [address],[place] [address] 09/06/2017 08:59:05 09/06/2017 10:05:36 Essential hypertension 05273027 I10 here for eval and doing well bp stable has lost 10lbs Impaired f asting glycemia 695735536 R73.01 a1c at 6.3 and doing well with wgt loss Transient ischemia 28495 009 I99.8 dquiet and asymptomat ic Obstructiv e sleep apnea syndrome 96166914 G47.33 doing ok uses every night only has 2-3 events at night Hypogonadism 83216425 E2 9.1 await results of testostero ne level will call with results [id number] William Quintana [facility] [address] [facility],[place] [address] 12/23/2017 13:48:03 12/23/2017 15:34:55 Impaired fasting glycemia 803891205 R73.01 a1c at 6.7 and doing well with a little wgt loss Essential hypertension 34147979 I10 here for eval and doing well bp stable has lost 10lbs Transient ischemia 41794 009 I99.8 now is quiet and asymptomat ic will cont to observe Edema of l ower extremity 439525970 R60.0 still some edema Tinea pedis 6822465 B35. 3 Impingemen t syndrome of shoulder region 623973483 M75.40 [id number] William Quintana [facility] [address] [place] [address],[place] [address] 04/22/2018 14:14:03 04/22/2018 16:00:12 Abdominal aortic aneurysm screening 539180673 Z13.6 will order next visit Screening for malignant neoplasm of colon 643428030 Z12.11 Essential hypertension 57869983 I10 here for eval and doing well bp stable has lost 10lbs Hypogonadism 37210723 E2 9.1 await results of testostero ne level will call with results Type 2 linda betes mellitus 87400639 E11.9 Pre-surger y evaluation 066946748 Z01.818 [id number] William Quintana [facility] [address] [facility],[place] [address] 08/04/2018 12:12:34 08/04/2018 14:03:11 Essential hypertension 71666103 I10 here for eval and doing well bp stable has lost 10lbs despite surgery bp stabel Edema of l ower extremity 969124159 R60.0 edema gone Type 2 linda betes mellitus 84171825 E11.9 [id number] William Quintana [facility] [address] [facility] [place] [address] 12/01/2018 09:57:46 12/01/2018 12:14:40 Type 2 diabetes mellitus 91190291 E11.9 much improved and is doing better eating better and is losing wgt a1c is 6.7 Essential hypertension 25998811 I10 here for eval and doing well bp stable has lost 10lbs despite surgery bp stable haviung lightheade dness will change to plain lisinopril and see if this is better Abdominal aortic aneurysm screening 397105290 Z13.6 will order next visit Hepatitis C screening 41 9145138 Z11.59 [id number] July PERNELL Baker [facility] [address] [facility],[place] [address] 12/30/2018 11:41:32 12/30/2018 12:15:42 Pain in right knee 8836245463 17443 M25.561 Gout 60477844 M10.9 will try colchicine and continue indomethac in prn will call in a couple days if not better then will try prednisone instead Essential hypertension 58787008 I10 mildly elevated ? pain Obstructiv e sleep apnea syndrome 18008898 G47.33 USES CPAP [id number] William Quintana [facility] [address] [facility] [address] 03/23/2019 10:25:13 03/23/2019 10:59:26 Type 2 diabetes mellitus 05620660 E11.9 much improved and is doing better eating better and is losing wgt a1c is 6.3 and was 7.2/ 6.7 Essential hypertension 72379388 I10 here for eval and doing well bp stable has lost 10lbs despite surgery bp stable haviung lightheade dness will change to plain lisinopril and see if this is better Abdominal aortic aneurysm screening 696389305 Z13.6 will order next visit Hepatitis C screening 41 3160677 Z11.59 Transient ischemia 21375 009 I99.8 now is quiet and asymptomat ic will cont to observe Obstructiv e sleep apnea syndrome 19640714 G47.33 doing ok uses every night only has 2-3 events at night [id number] William Quintana [facility] [address] [facility],[place] [address] 06/24/2019 09:46:00 06/24/2019 10:09:13 Type 2 diabetes mellitus 14591755 E11.9 much improved and is doing better eating better and is losing wgt a1c is 6.5 and was 6.7 Essential hypertension 83278800 I10 here for eval and doing well bp stable has lost 10lbs despite surgery bp stable having lightheade dness will change to plain lisinopril and see if this is better Edema of l ower extremity 802449586 R60.0 edema gone doing ok except for the shoulder Degenerati ve joint disease of shoulder region 74618760 M19.019 will need joint replacemen t as this joint is destroyed will provide him with a pain med for when it gets bad will give hydrocodon e on a prn basis only [id number] William Quintana DO [facility] [address] [facility] [address] 10/07/2019 09:04:03 10/07/2019 10:06:57 Type 2 diabetes mellitus 01104651 E11.9 Much improved with A1C at 6.2 due to weight loss and improved diet Microalbum in neg - already on ACEi Essential hypertension 48126317 I10 BP is stable and no more lightheade dness with med switch Edema of l ower extremity 365652424 R60.0 Stable [id number] William Quintana DO [facility] [address] [facility],[place] [address] 01/06/2020 09:47:30 01/06/2020 10:27:28 Essential hypertension 85493703 I10 BP is stable and no more lightheade dness with med switch Eczema 65112513 L30.9 will use prn Onychomyco sis of toenails 844471588 B35.1 encouraged to get pedicure [id number] HELEN WILLSON [facility] [address] [facility] [place] [address] 05/13/2020 11:48:29 05/13/2020 16:13:39 Gout 68133323 M10.9 Tobacco de pendence syndrome 96445579 F17.200 the patient stopped smoking on his own did not get the patches, so he just quit Transient cerebral ischemia 531889892 G45.9 Diabetes mellitus 453186 09 E11.9 [id number] William Quintana [facility] [address] [facility] [place],[facility], [place] [id number] 05/31/2020 11:31:14 05/31/2020 12:03:07 Left sided cerebral hemisphere cerebrovascular accident [id number] I63.9 he has recovered from this and he has quit smoking thank god bp is stable and he is overall doing better has already lost 10 lbs and no sypmptoms remain will cont on plavix for now Type 2 linda betes mellitus [id number] E11.9 his last test was a1c 6.7 here for rechk and we will follow this and expect it to be better as he has already lost 10 lbs Essential hypertension 92037242 I10 BP is stable and no more lightheade dness with med switch Edema of l ower extremity 364629314 R60.0 Stable no worsenein g [id number] William Quintana [facility] Internal [facility] [address] [facility] on [place] [address] 06/10/2020 09:20:50 06/10/2020 09:46:25 Essential hypertension 98377948 I10 BP is stable and no more lightheade dness no longer having palpitatio ns Diabetes mellitus 806199 09 E11.9 a1c is now down to 6.6 and he is doing significan tly better states is adjusting and is working hard noted that his feet are feeling much better has lost 10lbs so he is really trying still undergoing PT Obstructiv e sleep apnea syndrome 73404436 G47.33 doing ok uses every night only has 2-3 events at night Transient cerebral ischemia 406450965 G45.9 will be seeing neuro dr walker soon has not had any major symptoms as of late cont to work hard to turn things around [id number] William Quintana [facility] [address] [facility], ite [facility] [place] [address] 09/16/2020 09:29:16 09/16/2020 13:11:59 Essential hypertension 55449207 I10 BP is stable and no more lightheade dness no longer having palpitatio ns feelings are good no cp no sob Diabetes mellitus 543651 09 E11.9 a1c is now down to 6.3 and was 6.6 and he is doing significan tly better states is adjusting and is working hard noted that his feet are feeling much better had lost 10lbs so he is keping the wgt off Edema of l ower extremity 610212426 R60.0 Stable and is not having any edema right now [id number] William Quintana DO [facility] Internal Medicine [address] [facility], [place] [address] 12/23/2020 09:43:33 12/23/2020 13:00:52 Essential hypertension 51318037 I10 BP is stable and no more lightheade dness no longer having palpitatio ns feelings are good no cp no sob Diabetes mellitus 917582 09 E11.9 a1c is now 6.7 to 6.3 and was 6.6 and he is doing significan tly better states is adjusting and is working hard noted that his feet are feeling much better had lost 10lbs but gained back Edema of l ower extremity 169385434 R60.0 Stable and is not having any edema right now just at end of the day [id number] William Quintana DO [facility] Internal [facility] [address] [facility], it[address] [facility] [place] [address] 03/29/2021 08:30:53 03/29/2021 12:22:43 Diabetes mellitus 87001250 E11.9 a1c is now 6.8 6.7 to 6.3 and was 6.6 and he is doing significan tly better states is adjusting and is working hard noted that his feet are feeling much better had lost 10lbs but gained back Essential hypertension 29135946 I10 BP is stable and no more lightheade dness no longer having palpitatio ns feelings are good no cp no sob Edema of l ower extremity 576213155 R60.0 Stable and is not having any edema right now just at end of the day Gout 14892017 M10.9 stable and not having any outbreaks Tinea pedis 3134898 B35. 3 Eczema 79205189 L30.9 will use prn [id number] HELEN WILLSON [facility] Internal Medicine [address] [facility] [place] [address] 08/04/2021 14:44:38 08/04/2021 15:33:37 Pre-surgery evaluation 727019026 Z01.818 per the 2017 ACC cardiac risk factor evaluation (revised) he is cleared for the proposed cataract surgery and is considered low riskhe will cont his usual meds as dir Testostero ne level below reference range 793696221 R79.89 refill Renewal of prescription 184637247 Z76.0 Diabetes mellitus 043117 09 E11.9 a1c is now 6.8 6.7 to 6.3 and was 6.6 and he is doing significan tly better states is adjusting and is working hard noted that his feet are feeling much better had lost 10lbs but gained back 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 he has recovered from this and he has quit smoking bp is stable and he is overall doing better no sypmptoms remain will cont on plavix for now AMENDMENT: STROKE OCCURED ON 05/08/20; THE DIAGNOSIS WAS ADDED THE DAY OF THE PRE-OP, THE PATIENT DID NOT RECENTLY HAVE A STROKE AND IS STABLE FOR SURGERY [id number] William Quintana DO [facility] Internal Medicine [address] [facility] on [place] [place] [address] 11/06/2021 10:28:44 11/06/2021 11:22:37 Diabetes mellitus 15541680 E11.9 a1c is now 6.4 and 6.8 6.7 to 6.3 and was 6.6 and he is doing significan tly better states is adjusting and is working hard noted that his feet are feeling much better had lost 10lbs and kept it off Essential hypertension 66089190 I10 BP is stable and no more lightheade dness no longer having palpitatio ns feelings are good no cp no sob Hypogonadism 62311339 E2 9.1 await results of testostero ne level will call with results Active or passive immunization 119011178 Z23 advised for Tdap. pneumo, shingles [id number] [facility] [address] [facility],[place] [address] 04/06/2022 11:44:33 04/06/2022 14:56:25 Essential hypertension 69880325 I10 BP is stable and no more lightheade dness no longer having palpitatio ns feelings are good no cp no sob Hypogonadism 51812547 E2 9.1 await results of testostero ne level will call with results Diabetes mellitus 823397 09 E11.9 a1c is now 6.5 and prior 6.4 and 6.8 6.7 to 6.3 and was 6.6 and he is doing significan tly better states is adjusting and is working hard noted that his feet are feeling much better had lost 10lbs and kept it off [id number] William Quintana [facility] [address] [facility],[place] [address] 07/04/2022 10:18:43 07/04/2022 11:00:55 Testosterone level below reference range 750141604 R79.89 awaiting Diabetes mellitus 19140898 a1c is pending 6.5 and prior 6.4 and 6.8 6.7 to 6.3 and was 6.6 and he is doing significan tly better states is adjusting and is working hard noted that his feet are feeling much bettertrul icity 3mg samples given Essential hypertension 65244468 I10 BP is stable and no more lightheade dness no longer having palpitatio ns feelings are good no cp no sob Obstructiv e sleep apnea syndrome 94219464 G47.33 doing ok uses every night only has 2-3 events at night Left sided cerebral hemisphere cerebrovascular accident 657407420 I63.9 he has recovered from this and he has quit smoking bp is stable and he is overall doing better no sypmptoms remain will cont on plavix for now AMENDMENT: STROKE OCCURED ON 05/08/20; THE DIAGNOSIS WAS ADDED THE DAY OF THE PRE-OP, THE PATIENT DID NOT RECENTLY HAVE A STROKE AND IS STABLE FOR SURGERY Hepatitis C screening 41 4865071 Z11.59 will chk Advance care planning 71 1468218 Z71.89 done [id number] William Quintana [facility] [address] [facility],[place] [address] 10/15/2022 11:36:58 10/15/2022 12:34:05 Essential hypertension 74045021 I10 BP is stable and no more lightheade dness no longer having palpitatio ns feelings are good no cp no sob Diabetes mellitus 601000 E11.9 a1c is 6.4 he was 7.1 in june 6.5 and prior 6.4 and 6.8 6.7 to 6.3 and was 6.6 and he is doing significan tly better states is adjusting and is working hard noted that his feet are feeling much bettertrul icity or ozempic inj will hopefully be ordered by endocrinol ogist Screening for malignant neoplasm of colon 415247090 Z12.11 discussed he will be called Hepatitis C screening 41 0658966 Z11.59 will [facility] [address] [facility] [address] [facility],[place] [address] 02/08/2023 12:00:51 02/08/2023 13:29:26 Hypogonadism 34109039 E29.1 following endocrine Essential hypertension 27987526 I10 BP is stable and no more lightheade dness no longer having palpitatio ns feelings are good no cp no sob Diabetes mellitus 716349 E11. a1c is 6.4 he was 7.1 in june 6.5 and prior 6.4 and 6.8 6.7 to 6.3 and was 6.6 and he is doing significan tly better states is adjusting and is working hard noted that his feet are feeling much bettertrul icity or ozempic inj will hopefully be ordered by endocrinol ogist [id number] William Quintana [facility] Internal [facility] [address] [place] [address] 05/08/2023 09:27:17 05/08/2023 10:05:12 Type 2 diabetes mellitus without complication 149633475 E11.9 a1c is 6.4 still doing good Cerebrovas cular accident 433992079 I63.9 quiet and doing ok Diabetes mellitus 169884 09 E11.9 a1c is still 6.4 and doing ok 6.4 he was 7.1 in june 6.5 and prior 6.4 and 6.8 6.7 to 6.3 and was 6.6 and he is doing significan tly better states is adjusting and is working hard noted that his feet are feeling much bettertrul icity or ozempic inj will hopefully be ordered by endocrinol ogist Benign pro static hyperplasia 816260514 N40.1 [id number] HELEN WILLSON [facility] Internal [facility] [address] [facility], [place] [facility] [employer] [place] [place] [address] 05/20/2023 11:23:41 05/20/2023 12:12:07 Pain in testicle 26045697 N50.811 will need US to confirm hernia vs malignancy cannot exclude either possibilit ypt agrees to plan [id number] William Quintana DO [facility] Internal Medicine [address] [facility],[place] [address] 08/09/2023 09:32:50 08/09/2023 10:22:09 Type 2 diabetes mellitus without complication 972589764 E11.9 a1c is 7.0 still doing good we will rechk in 3 mo Essential hypertension 38015372 I10 BP is stable and no more lightheade dness no longer having palpitatio ns feelings are good no cp no sob Hypogonadism 26630251 E2 9.1 following endocrined oing better with the testostero ne [id number] William Quintana DO [facility] [address] [facility],[place] [address] 11/20/2023 09:32:12 11/20/2023 10:48:35 Adult health examination 965486664 Z00.00 doing ok no issues Screening for cardiovascular system disease 430561267 Z13.6 stable Screening for malignant neoplasm of colon 421059052 Z12.11 discussed he will be called Depression screening 171 049721 Z13.31 neg Cerebrovas cular accident 151342455 I63.9 quiet and doing ok Edema of l ower extremity 675376055 R60.0 Stable and is not having any edema right now just at end of the day Type 2 linda betes mellitus without complication 729151246 E11.9 a1c is 6.4 still doing good we will rechk in 3 mo Essential hypertension 60908967 I10 BP is stable and no more lightheade dness no longer having palpitatio ns feelings are good no cp no sob [id number] William Quintana, [facility] [address] [facility],[place] [address] 02/28/2024 08:58:32 02/28/2024 09:41:26 Diabetes mellitus 19671820 E11.9 a1c is pending was 6.4 and doing ok 6.4 he was 7.1 in june 6.5 and prior 6.4 and 6.8 6.7 to 6.3 and was 6.6 and he is doing significan tly better states is adjusting and is working hard noted that his feet are feeling much bettertrul icity or ozempic inj will hopefully be ordered by endocrinol ogist Edema of l ower extremity 031035655 R60.0 Stable and is not having any edema right now just at end of the day Essential hypertension 10869807 I10 BP is stable and no more lightheade dness no longer having palpitatio ns feelings are good no cp no sob Cerebrovas cular accident 001298978 I63.9 quiet and doing ok [id number] William Quintana, [facility] [address] [facility],[place] [address] 03/10/2024 12:15:57 03/10/2024 14:30:29 Effusion of olecranon bursa of right elbow 5189372616 087498 M71.821 well eileen aspiration and inj Health Concerns Section Related Observation LastModified by Organization Detai ls LastModified Time None Recorded Concern Status LastModified by Organization Details LastModified Time None Recorded Advance Directives Directive None Recorded Payers Encounter Date Sequence Insurance Name Policy Number Policy Hernandez Covered Member ID Hernandez Member ID Guarantor Name 05/20/2023 1 [employer]-ID: SECURE [id number] (MEDICARE REPLACEMENT PPO) [id number] Jose Miguel Avendano [id number] Jose Miguel Avendano 08/09/2023 1 [employer]-ID: SECURE BLUE (MEDICARE REPLACEMENT PPO) [id number] Gillespie J Verona [id number] 003 Gillespie Verona 11/20/2023 1 [employer]-ID: SECURE BLUE (MEDICARE REPLACEMENT PPO) [id number] Gillespie J Verona [id number] 003 Gillespie Verona 02/28/2024 1 [employer]-ID: SECURE BLUE (MEDICARE REPLACEMENT PPO) [id number] Gillespie J Juan Alberto [id number] 003 Gillespie Verona 03/10/2024 1 [employer]-ID: SECURE BLUE (MEDICARE REPLACEMENT PPO) [id number] Gillespie J Juan Alberto [id number] 003 Gillespie Verona Notes Date Note Type Note Provider Name and Address Organization Details Recorded Time 4 text/htm l c/o enlarged testicle the patient reports that he is having enlarged testiclespainful if he sits on it wrong but otherwise no painno n/v/d, testicular torsion unlikely the patient denies discharge, changes in urine, change in the color no pain with ejaculationno trauma or injury that he can rememberno fever, no chills, no N/V/D no new sexual partnershas not had sex in months per patient (has a long time GF) states this happened on Saturday that he noticed it very possible it could be hernia vs a mass/neoplasmagreed to HELEN WILLSON [address] [place] [address], [phone], [facility] 05/20/2023 12:03:53 4 text/htm l Care Management - DiabetesReported bypatient.Self Care:seeing eye doctor yearly for dilated eye exam; checking feet regularly; normal range of home blood sugars (in the low 100s); no side effects from medications Associated Symptoms:symptoms are usually well controlled; no fatigue; no dizziness; no excessive sweating; no headaches; no confusion; no increased thirst; no increased appetite; no increased urination; no blurred vision; no numbness of feet; no calluses on feetCare Management - HypertensionReported bypatient.Self Care:not under emotional stress Severity:symptoms are improving; does not interfere with daily activities Associated Symptoms:no dizziness; no lightheadedness; no chest pain; no shortness of breath; no palpitations; no edema; no calf muscle cramps; no blurred vision; no confusion; no headaches; no fatigue here for rechk and is doing ok overalldiscussed results in [id number] is 7was eval by radha who recc jardiance but he is holding off for now and is eating betterrelates he had been not eating greatno cp no sobrelates has been having occ trouble sleeping about once a week William Quintana DO [address] [place], [address], [facility] 08/09/2023 09:57:37 4 text/htm l Medicare Annual Wellness VisitReported bypatient.Diet and Nutrition:healthy diet Fracture Risk:no history of fractures; no recent explained fracture; no sudden unexplained fractures; no previous musculoskeletal injuries Physical Activity:exercises on a regular basis; recent increase in physical activity; good physical condition Depression Risk:never feels sad, empty, or tearful; no loss of interest in activities; no significant changes in weight; no sleep disturbances or insomnia; no agitation; no loss of energy; no feelings of worthlessness or guilt; no thoughts of suicide; no history of depression; no history of mood disorders Orientation:no disorientation to time; no disorientation to date; no disorientation to place Concentration and Memory:no decreased concentrating ability; no memory lapses or loss; does not forget words Speech/Motor difficulties:no speech difficulties; no difficulty expressing formulated concepts; no difficulty with fine manipulative tasks; no difficulty writing/copying; no slowed reaction time; does not knock things over when trying to pick them up Hearing:no loss of hearing Vision:no vision problems Activities of Daily Living:able to bathe with limited or no assistance; able to contol urination and bowels; able to dress with limited or no assistance; able to feed self with limited or no assistance; able to get out of chair or bed with limited or no assistance; able to groom with limited or no assistance; able to toilet with limited or no assistance Instrumental Activities of Daily Living:able to do house work with limited or no assistance; able to grocery shop with limited or no assistance; able to manage medications with limited or no assistance; able to manage money with limited or no assistance; able to prepare meals with limited or no assistance; able to use the phone with limited or no assistance Falls Risk Assessment:no frequent falls while walking; no fall in the past year; no fall since last visit; no dizziness/vertigo Home Safety:no unsafe emily hazzards; no unsafe stairs; no unsafe gas appliances; working smoke/CO detectors; wears protective head gear for biking/high velocity; use of seatbelts; practicing 'safer sex'; no vision or hearing loss while driving; no fire arms; has hand bars in the bathroom/shower; good lighting in the home William Quintana DO [address] [place] [address], [phone], [facility] 11/20/2023 10:01:18 4 text/htm l Care Management - DiabetesReported bypatient.Self Care:seeing eye doctor yearly for dilated eye exam; checking feet regularly; normal range of home blood sugars (in the low 100s); no side effects from medications Associated Symptoms:symptoms are usually well controlled; no fatigue; no dizziness; no excessive sweating; no headaches; no confusion; no increased thirst; no increased appetite; no increased urination; no blurred vision; no numbness of feet; no calluses on feetCare Management - HypertensionReported bypatient.Self Care:not under emotional stress Severity:symptoms are improving; does not interfere with daily activities Associated Symptoms:no dizziness; no lightheadedness; no chest pain; no shortness of breath; no palpitations; no edema; no calf muscle cramps; no blurred vision; no confusion; no headaches; no fatigue here for rechk and is doing ok overallrelates that he has been trying to eat wellhas noted a elbow swelling as of late very tender in certain spots William Quintana DO [address] [place] [address], [phone], [facility] 02/28/2024 09:39:03 4 text/htm l here for bursa drainage William Quintana DO [address] [place] [address], [phone], [facility] 03/10/2024 12:43:29
[2024-06-01 14:08] LABS: Estimated Average Glucose 140 mg/dL; Hemoglobin A1C 194.2997 umol/L; Hemoglobin A1c % 6.5 % (<6.0); Total Hemoglobin (HGBA1C) 4109.8682 umol/L
== END 2024-06-01 11:34 | disposition home or self-care (01) ==
LOC: HO.MANLDS 11:33
PROVIDERS: Visit Provider Internal Medicine
DX: E11.9 Type 2 diabetes mellitus without complications (principal)
CPT/HCPCS: 36415; 83036

== ENCOUNTER 2024-08-21 09:26 | Outpatient (REF) | payer MEDICARE, SELFPAY ==
--- OUTSIDE RECORDS SUMMARY | 2024-08-21 09:37 | XMS_ITS | Continuity of Care Document ---
Author Organization [place] - [facility], [facility] Address [address] [place] [address] Assessment Encounter Date Assessment Date Assessment LastModified by Organization Details LastModified Time 08/21/2024 08/21/2024 [id number] [place] [id number] (BOARD RUNNER) MDM MODERATE MUST MEET 2 OUT OF [...] EACH ELEMENT THAT IS COVERED Not available 08/21/2024 09:14:42 Plan of Treatment Reminders Order Date Submit Date Provider Last Modified By Organization Details Last Modified Time Details Appointments FOLLOW UP 15 2024 09:00A M DR QUINTANA Not available Not available Not available MEDICARE ANNUAL WELLNESS 2024 10:00A M DR QUINTANA Not available Not available Not available Lab CMP, serum or plasma 2024 025 [facility], [address] [place] [address], [place], [address], 08/21/2024 09:21:18 microalbu min, urine 2024 025 [facility], [address] [place] [address], [place], [address], 08/21/2024 09:21:18 lipid panel, serum 2024 025 [facility], [address] [place] [address], [place], [address], 08/21/2024 09:21:18 CBC w/ auto diff 2024 025 [facility], [address] [place] [address], [address], 08/21/2024 09:21:18 Referral None recorded. Procedures None recorded. Surgeries None recorded. Imaging None recorded. Medication Orders triamtere ne 37.5 mg-hydroc hlorothia zide 25 mg tablet 2024 025 [id number], [address] [place] [address], [id number], 08/21/2024 09:25:07 Patient TargetsNo targets recorded. Patient InstructionsNo instructions recorded. Reason for Referral None Reported. Problems Name Problem SNOMED Code Status Onset Date Resolution Date Notes Provider Name and Address Organization Details Recorded Time Edema of lower extremit y 107356241 Active 2017 Not Available [facility] 2 12:45:13 Osteoart hritis of shoulder region 54182246 Active 2019 Not Available [facility] 2 12:45:13 Impaired fasting glycemia 499474353 Completed 201905/31/2020 William Quintana DO [address] [place] [address], [address], [facility] 1 11:56:05 Diabetes mellitus 62326710 Active 2020 type 2 diabetes , last check 05/07/20 was 6.7% Not Available [facility] 2 12:45:13 Testoste sherice level below referenc e range 001597097 Active 2021 William Quintana DO [address] [place], [address], [facility] 2 14:52:08 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 791444714 Active 2020 HELEN WILLSON [address] [place] [address], [address], [facility] 2 11:08:00 Type 2 diabetes mellitus without complica tion 334068963 Active 2023 William Quintana DO [address] [place] [address], [address], [facility] 4 09:56:16 Cerebrov ascular accident 659119783 Active 2023 William Quintana DO [address] [place] [address], [address], [facility] 4 09:56:16 Benign prostati c hyperpla chiqui 428571109 Active 2023 William Quintana DO [address] [place] [address], [address], [facility] 4 09:56:35 Pain in testicle 13386457 Active 2023 HELEN WILLSON [address] [place] [address], [address], [facility] 4 11:57:16 Epididym itis 17824721 Active 2023 HELEN WILLSON [address] [place] [address], [address], [facility] 4 13:22:48 Hydrocel e of testis 73909618 Active 2023 HELEN WILLSON [address] [place] [address], [address], [facility] 4 13:58:43 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 screenin g 494660437 Active 2023 William Quintana DO [address] [place] [address], [address], [facility] 4 22:01:44 Bursitis of olecrano n of right elbow 3831952975 75466 Active 2023 William Quintana, DO [address] [place] [address], [address], [facility] 4 12:40:58 Effusion of olecrano n bursa of right elbow 5093387654 311767 Active 2023 William Quitnana, DO [address] [place] [address], [address], [facility] 4 12:41:24 Bilatera l lower limb edema 396795009 Active 2024 William Mora Bhargavdarryl DO [address] [place] [address], [address], [facility] 5 09:20:56 [facility]ia l hyperten rusty 74421147 Active 2017 Not Available [facility] 2 12:45:13 Transien t ischemia 03268012 Active 2017 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 , date unknown) Not Available [facility] 2 12:45:13 Hypergly cemia 40157549 Completed 201708/04/2018 William Mora Sophia, DO [address] [place] [address], [address], [facility] 9 12:38:54 Impaired fasting glycemia 985587064 Completed 201708/04/2018 William Mora Bhargavdarryl, DO [address] [place] [address], [address], [facility] 1 11:56:05 Disorder of lumbar disc 314759102 Active 2017 L1-L2 disc disease, s/p surgery Not Available [facility] 2 12:45:13 Hypogona dism 30703719 Active 2017 Not Available [facility] 2 12:45:13 Gout 45406081 Active 2017 Not Available [facility] 2 12:45:13 Obstruct edith sleep apnea syndrome 92924608 Active 2017 Not Available [facility] 2 12:45:13 Problem Notes None recorded. Procedures Surgical History Date Name Laterality Status Provider Name and Address Organization Details Recorded Time 5 Colonoscopy completed Hernandez Quintana [facility] 05/06/2024 14:08:34 2 Cataract Surgery completed Latonia Lafleur [facility] 02/03/2024 09:56:24 0 Colonoscopy completed Loulou Zavala [facility] 03/23/2019 08:44:34 Imaging Results None recorded. Procedure Notes None recorded. Medical Equipment None Reported. Allergies Allergen ID Allergen Name Allergen Category Reaction Reaction Severity Criticality Documentation Date Start Date Code Code System Note Provider Name and Address Organization Details Recorded Time 7750 Ozempic medicatio n diarrhea moderate Not available 05/08/2023 [facility] William Quintana, DO [address] [place], [address], [facility] 4 10:00:03 Medications Name Sig [...] TAKE 1 TABLET BY MOUTH TWICE DAILY active Not Available Not Available No t Available clopidogrel 75 mg tablet Take 1 tablet [...] Not Available Not Available No t Available morphine 30 mg immediate release tablet TAKE [...] completed Not Available Not Available Not Available triamterene 37.5 mg-hydrochl orothiazide 25 mg tablet Take 1 tablet every day by oral route as needed for 30 days, for leg edema. 2024 active Not Available Not Available Not Avai lable diclofenac sodium 75 mg tablet,radha yed release Take 1 tablet twice a day by oral route for 30 days. 12/30 completed Not Available Not Available Not Available halobetasol propionate 0.05 % topical cream APPLY TOPICALLY TO THE AFFECTED AREA TWICE DAILY NEEDED active Not Available Not Available No t Available bisacodyl 5 mg tablet,radha yed release TAKE 4 TABLETS ONCE BY MOUTH THE DAY BEFORE PROCEDURE active Not Available Not Available No t [...] per pump actuation (1%) transdermal gel APPLY 3 PUMPS EXTERNALL Y TO UPPER ARM OR SHOULDER ONCE DAILY active Not Available Not Available No t Available chlorhexidi ne gluconate 0.12 % mouthwash 09/06 completed Not Available Not Available Not Available GaviLyte-G 236 gram-22.74 gram-6.74 gram-5.86 gram oral solution MIX AND DRINK DIRECTED 06/03 completed Not Available Not Available Not Available [...] and Address Organization Details Last Updated DateTime 5 182.88 cm 36.1 kg/m2 056713. 57 g 78 /min 97 % 97 % 140 mm[Hg] 72 mm[Hg] Marie Ruben [facility] 5 09:02:44 Social History Question Answer Notes LastModified by Organizat ion Details LastModified Time Tobacco Smoking Status [facility]2020 11:53:50 What Was The Date Of Your Most Recent Tobacco Screening? 08/21/2024 [email or web address] Information not available 08/21/2024 How Much Tobacco Do You Smoke? No Information not available 09/16/2020 Sex: Unknown Functional Status Question Answer Note LastModified by Organization D etails LastModified Time Do you or have you ever used any other forms of tobacco or nicotine? No Information not available 07/04/2022 Mental Status None recorded. Family History Nothing Reported. Medical History No medical history recorded. Immunizations Vaccine Type Date Status Note Provider Nam e and Address Organization Details Recorded Time COVID-19, mRNA, LNP-S, PF, 30 mcg/0.3 mL dose 2 completed HELEN WILLSON [address] [place] [address], [address], [facility] 04/17/2021 12:56:45 Influenza, split virus, quadrivalent, preservative 2 completed HELEN WILLSON [address] [place] [address], [address], [facility] 04/17/2021 12:56:55 zoster recombinant 2 completed HELEN WILLSON [address] [place], [address], [facility] 06/20/2021 13:35:13 COVID-19, mRNA, LNP-S, PF, 30 mcg/0.3 mL dose 1 completed William Quintana DO [address] [place] [address], [address], [facility] 09/16/2020 09:34:37 COVID-19, mRNA, LNP-S, PF, 30 mcg/0.3 mL dose 1 completed William Quintana DO [address] [facility], [place], [address], [facility] 09/16/2020 09:34:46 Past Encounters Encounter ID Performer Location Encounter Start Date Encounter Closed Date Diagnosis/Indication Diagnosis SNOMED-CT Code Diagnosis ICD10 Code Diagnosis Note [id number] William Quintana DO [facility] [address] [facility] [address] 08/21/2024 08:53:13 08/21/2024 09:26:50 Diabetes mellitus 93036789 E11.9 a1c is 6.5 was 6.7 and doing ok states is adjusting and is working hard noted that his feet are feeling much bettertrul icity or ozempic inj will hopefully be ordered by endocrinol ogist Essential hypertension 41904005 I10 BP is stable and no more lightheade dness no longer having palpitatio ns feelings are good no cp no sob Hypogonadism 56224592 E2 9.1 following endocrined oing better with the testostero ne Testostero ne level below reference range 037031305 R79.89 awaiting Depression screening 171 028093 Z13.31 neg Bilateral lower limb edema 540891943 R60.0 will try dyazide prn Health Concerns Section Related Observation LastModified by Organization Detai ls LastModified Time None Recorded Concern Status LastModified by Organization Details LastModified Time None Recorded Payers Encounter Date Sequence Insurance Name Policy Number Policy Hernandez Covered Member ID Hernandez Member ID Guarantor Name 08/21/2024 1 [employer]-ID: [employer] BLUE (MEDICARE REPLACEMENT PPO) [id number] Jose Miguel Avendano [id number] Jose Miguel Avendano Notes Date Note Type Note Provider Name and Address Organization Details Recorded Time 5 text/htm l Care Management - DiabetesReported bypatient.Self [...] vision; no confusion; no headaches; no fatigue doing well and no major issues William Quintana, DO [address] [place] [address], [address], [facility] 08/21/2024 09:25:19
--- OUTSIDE RECORDS SUMMARY | 2024-08-21 09:38 | XMS_ITS | Data Portability ---
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) MDM MODERATE MUST MEET 2 OUT OF [...] EACH ELEMENT THAT IS COVERED Not available 06/03/2024 09:39:41 08/21/2024 08/21/2024 [address] [place] [address] (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) MDM MODERATE MUST MEET 2 OUT OF [...] Lab CMP, serum or plasma 2024 025 [facility], [address] [place] [address], [place], [address], 08/21/2024 09:21:18 microalbu min, urine 2024 025 [facility], [address] [place] [address], [place], [address], 08/21/2024 09:21:18 lipid panel, serum 2024 025 [facility], [address] [place] [address], [address], 08/21/2024 09:21:18 CBC w/ auto diff 2024 025 [facility], [address] [place] [address], [address], 08/21/2024 09:21:18 HbA1c (hemoglob in A1c), blood 2023 024 [facility], [address] [place] [address], [address], 02/28/2024 09:34:08 hemoglobi n, gastroint estinal, stool 2023 024 [facility], [address] [place] [address], [address], 03/03/2024 08:25:13 CBC w/ auto diff 2023 024 [facility], [address] [place] [address], [address], 02/26/2024 13:00:16 CMP, serum or plasma 2023 024 [facility], [address] [place] [address], [address], 02/26/2024 13:00:16 Referral None recorded. Procedures None recorded. Surgeries None recorded. Imaging None recorded. Medication Orders triamtere ne 37.5 mg-hydroc hlorothia zide 25 mg tablet 2024 025 [id number], [address] [place] [address], [id number], 08/21/2024 09:25:07 Patient TargetsNo targets recorded. Patient Instructions Encounter Date Encounter Id Patient Instructions Last Modified By Organization Details Last Modified Time 11/20/2023 [id number] leg and ankle edema: care instructions Not available 11/20/2023 09:59:51 stroke: care instructions Not available 11/20/2023 09:59:51 high blood pressure: care instructions Not available 11/20/2023 09:59:51 learning about high blood pressure Not available 11/20/2023 09:59:51 advance care planning: care instructions Not available 11/20/2023 09:59:51 Discussed and explained advance directives such as standard forms to the {{patient* caregi pratibha patient and caregiver}}. Face to face discussion lasted for a duration of 10___ minutes. Not available 11/20/2023 09:59:42 02/28/2024 [id number] stroke: care instructions Not available 02/28/2024 09:33:01 06/03/2024 [id number] gout: care instructions Not available 06/03/2024 09:32:15 Reason for Referral None Reported. Results Created Date Observation Date Name Description Value Unit Range Abnormal Flag Note LastModifiedBy Organization Detail LastModifiedTime Result Notes None recorded. Problems Name Problem SNOMED Code Status Onset Date Resolution Date Notes Provider Name and Address Organization Details Recorded Time Edema of lower extremit y 691321862 Active 2017 Not Available [facility] 2 12:45:13 Osteoart hritis of shoulder region 08682163 Active 2019 Not Available [facility] 2 12:45:13 Impaired fasting glycemia 178547571 Completed 201905/31/2020 William Quintana DO [address] [place] [address], [address], [facility] 1 11:56:05 Diabetes mellitus 40823130 Active 2020 type 2 diabetes , last check 05/07/20 was 6.7% Not Available [facility] 2 12:45:13 Testoste sherice level below referenc e range 898526870 Active 2021 William Quintana DO [address] [place], [address], [facility] 2 14:52:08 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 536365685 Active 2020 HELEN WILLSON [address] [place], [address], [facility] 2 11:08:00 Type 2 diabetes mellitus without complica tion 307176402 Active 2023 William Quintana DO [address] [place] [address], [address], [facility] 4 09:56:16 Cerebrov ascular accident 904998545 Active 2023 William Quintana DO [address] [place] [address], [address], [facility] 4 09:56:16 Benign prostati c hyperpla chiqui 722836820 Active 2023 William Quintana DO [address] [place] [address], [address], [facility] 4 09:56:35 Pain in testicle 68001552 Active 2023 HELEN WILLSON [address] [place] [address], [address], [facility] 4 11:57:16 Epididym itis 32373615 Active 2023 HELEN WILLSON [address] [place] [address], [address], [facility] 4 13:22:48 Hydrocel e of testis 23519230 Active 2023 HELEN WILLSON [address] [place] [address], [address], [facility] 4 13:58:43 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 screenin g 247490665 Active 2023 William Quintana DO [address] [place], [address], [facility] 4 22:01:44 Bursitis of olecrano n of right elbow 9960579961 81698 Active 2023 William Quintana, DO [address] [place], [address], [facility] 4 12:40:58 Effusion of olecrano n bursa of right elbow 4111842275 514916 Active 2023 William Quintana, DO [address] [place], [address], [facility] 4 12:41:24 Bilatera l lower limb edema 527749946 Active 2024 William Mora Bhargavdarryl, DO [address] [place] [address], [address], [facility] 5 09:20:56 Essentia l hyperten rusty 55448705 Active 2017 Not Available [facility] 2 12:45:13 Transien t ischemia 05977005 Active 2017 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 , date unknown) Not Available [facility] 2 12:45:13 Hypergly cemia 89022664 Completed 201708/04/2018 William Quintana, DO [address] [place] [address], [address], [facility] 9 12:38:54 Impaired fasting glycemia 726276762 Completed 201708/04/2018 William Quintana, DO [address] [place] [address], [address], [facility] 1 11:56:05 Disorder of lumbar disc 293588297 Active 2017 L1-L2 disc disease, s/p surgery Not Available [facility] 2 12:45:13 Hypogona dism 51824886 Active 2017 Not Available [facility] 2 12:45:13 Gout 47130166 Active 2017 Not Available [facility] 2 12:45:13 Obstruct edith sleep apnea syndrome 18309636 Active 2017 Not Available [facility] 2 12:45:13 Problem Notes None recorded. Procedures Surgical History Date Name Laterality Status Provider Name and Address Organization Details Recorded Time 5 Colonoscopy completed Hernandez Quintana [facility] 05/06/2024 14:08:34 2 Cataract Surgery completed Latonia Lafleur [facility] 02/03/2024 09:56:24 0 Colonoscopy completed Loulou Zavala [facility] 03/23/2019 08:44:34 Imaging Results None recorded. Procedure Notes None recorded. Medical Equipment None Reported. Allergies Allergen ID Allergen Name Allergen Category Reaction Reaction Severity Criticality Documentation Date Start Date Code Code System Note Provider Name and Address Organization Details Recorded Time 7750 Ozempic medicatio n diarrhea moderate Not available 05/08/2023 07 RxNorm William Quintana, DO [address] [place], [address], [facility] 4 10:00:03 Medications [...] Updated DateTime 4 182.88 cm 36.1 kg/m2 316743. 57 g 72 /min 96 % 96 % 138 mm[Hg] 82 mm[Hg] William Quintana, DO [address] [facility], [place], [address] Nicole [facility] 4 09:40:56 Date Recorded Body height Body mass index (BMI) Body weight Oxygen saturation Oxygen saturation in Arterial blood by Pulse oximetry Heart rate Systolic blood pressure Diastolic blood pressure Provider Name and Address Organization Details Last Updated DateTime 4 182.88 cm 35.7 kg/m2 379672. 79 g 96 % 96 % 86 /min 128 mm[Hg] 74 mm[Hg] Marie Miranda [facility] 4 09:11:05 Date Recorded Body height Body mass index (BMI) Body weight Heart rate Oxygen saturation Oxygen saturation in Arterial blood by Pulse oximetry Systolic blood pressure Diastolic blood pressure Provider Name and Address Organization Details Last Updated DateTime 5 182.88 cm 36.1 kg/m2 303648. 57 g 76 /min 96 % 96 % 128 mm[Hg] 82 mm[Hg] Migue Cohen [facility] 5 09:22:00 Date Recorded Body height Body mass index (BMI) Body weight Heart rate Oxygen saturation Oxygen saturation in Arterial blood by Pulse oximetry Systolic blood pressure Diastolic blood pressure Provider Name and Address Organization Details Last Updated DateTime 5 182.88 cm 36.1 kg/m2 145978. 57 g 78 /min 97 % 97 % 140 mm[Hg] 72 mm[Hg] Marie Miranda [facility] 5 09:02:44 Social History Question Answer Notes LastModified by Organizat ion Details LastModified Time Tobacco Smoking Status Former Smoker Ximena fernandes [facility] 05/13/2020 11:53:50 What Was The Date Of Your Most Recent Tobacco Screening? 08/21/2024 [email or web address] Information not available 08/21/2024 How Much Tobacco [...] Immunizations Vaccine Type Date Status Note Provider Papito jasso and Address Organization Details Recorded Time COVID-19, mRNA, LNP-S, PF, 30 mcg/0.3 mL dose 2 completed HELEN WILLSON [address] [place] [address], [address], [facility] 04/17/2021 12:56:45 Influenza, split virus, quadrivalent, preservative 2 completed HELEN WILLSON [address] [place] [address], [address], [facility] 04/17/2021 12:56:55 zoster recombinant 2 completed HELEN WILLSON [address] [place] [address], [address], [facility] 06/20/2021 13:35:13 COVID-19, mRNA, LNP-S, PF, 30 mcg/0.3 mL dose 1 completed William Quintana DO [address] [place] [address], [address], [facility] 09/16/2020 09:34:37 COVID-19, mRNA, LNP-S, PF, 30 mcg/0.3 mL dose 1 completed William Quintana DO [address] [place] [address], [address], [facility] 09/16/2020 09:34:46 Past Encounters Encounter ID Performer Location Encounter Start Date Encounter Closed Date Diagnosis/Indication Diagnosis SNOMED-CT Code Diagnosis ICD10 Code Diagnosis Note [id number] William Quintana DO [facility] [address] [place] [address],[place] [address] 09/06/2017 08:59:05 09/06/2017 10:05:36 Essential hypertension 27648245 I10 here for eval and doing well bp stable has lost 10lbs Impaired f asting glycemia 221424417 R73.01 a1c at 6.3 and doing well with wgt loss Transient ischemia 25740 009 I99.8 dquiet and asymptomat ic Obstructiv e sleep apnea syndrome 31427378 G47.33 doing ok uses every night only has 2-3 events at night Hypogonadism 51010337 E2 9.1 await results of testostero ne level will call with results [id number] William Quintana [facility] [address] [facility], [place] [address] 12/23/2017 13:48:03 12/23/2017 15:34:55 Impaired fasting glycemia 906685241 R73.01 a1c at 6.7 and doing well with a little wgt loss Essential hypertension 33141401 I10 here for eval and doing well bp stable has lost 10lbs Transient ischemia 66895 009 I99.8 now is quiet and asymptomat ic will cont to observe Edema of l ower extremity 506299368 R60.0 still some edema Tinea pedis 7656698 B35. 3 Impingemen t syndrome of shoulder region 340093091 M75.40 [id number] William Quintana [facility] [address] [facility], [place] [address] 04/22/2018 14:14:03 04/22/2018 16:00:12 Abdominal aortic aneurysm screening 667114478 Z13.6 will order next visit Screening for malignant neoplasm of colon 669834378 Z12.11 Essential hypertension 43429145 I10 here for eval and doing well bp stable has lost 10lbs Hypogonadism 43375694 E2 9.1 await results of testostero ne level will call with results Type 2 linda betes mellitus 56823340 E11.9 Pre-surger y evaluation 656819509 Z01.818 [id number] William Quintana [facility] [address] [facility], [place] [address] 08/04/2018 12:12:34 08/04/2018 14:03:11 Essential hypertension 54237474 I10 here for eval and doing well bp stable has lost 10lbs despite surgery bp stabel Edema of l ower extremity 982694055 R60.0 edema gone Type 2 linda betes mellitus 43509372 E11.9 [id number] William Quintana, [facility] [address] [facility],[place] [address] 12/01/2018 09:57:46 12/01/2018 12:14:40 Type 2 diabetes mellitus 61697515 E11.9 much improved and is doing better eating better and is losing wgt a1c is 6.7 Essential hypertension 28130747 I10 here for eval and doing well bp stable has lost 10lbs despite surgery bp stable haviung lightheade dness will change to plain lisinopril and see if this is better Abdominal aortic aneurysm screening 145660579 Z13.6 will order next visit Hepatitis C screening 41 0736093 Z11.59 [id number] William Quintana [facility] [address] [facility] [address],[place] [address] 12/30/2018 11:41:32 12/30/2018 12:15:42 Pain in right knee 6676124181 90243 M25.561 Gout 30950026 M10.9 will try colchicine and continue indomethac in prn will call in a couple days if not better then will try prednisone instead Essential hypertension 59201088 I10 mildly elevated ? pain Obstructiv e sleep apnea syndrome 08196390 G47.33 USES CPAP [id number] William Quintana [facility] [address] [facility],[place] [address] 03/23/2019 10:25:13 03/23/2019 10:59:26 Type 2 diabetes mellitus 56793682 E11.9 much improved and is doing better eating better and is losing wgt a1c is 6.3 and was 7.2/ 6.7 Essential hypertension 74873282 I10 here for eval and doing well bp stable has lost 10lbs despite surgery bp stable haviung lightheade dness will change to plain lisinopril and see if this is better Abdominal aortic aneurysm screening 524191431 Z13.6 will order next visit Hepatitis C screening 41 5886399 Z11.59 Transient ischemia 45944 009 I99.8 now is quiet and asymptomat ic will cont to observe Obstructiv e sleep apnea syndrome 84575435 G47.33 doing ok uses every night only has 2-3 events at night [id number] William Quintana [facility] [address] [facility],[place] [address] 06/24/2019 09:46:00 06/24/2019 10:09:13 Type 2 diabetes mellitus 92849144 E11.9 much improved and is doing better eating better and is losing wgt a1c is 6.5 and was 6.7 Essential hypertension 04032164 I10 here for eval and doing well bp stable has lost 10lbs despite surgery bp stable having lightheade dness will change to plain lisinopril and see if this is better Edema of l ower extremity 730840134 R60.0 edema gone doing ok except for the shoulder Osteoarthr itis of shoulder region 91808959 M19.019 will need joint replacemen t as this joint is destroyed will provide him with a pain med for when it gets bad will give hydrocodon e on a prn basis only [id number] William Quintana [facility] [address] [facility],[place] [address] 10/07/2019 09:04:03 10/07/2019 10:06:57 Type 2 diabetes mellitus 47856187 E11.9 Much improved with A1C at 6.2 due to weight loss and improved diet Microalbum in neg - already on ACEi Essential hypertension 52263444 I10 BP is stable and no more lightheade dness with med switch Edema of l ower extremity 511656689 R60.0 Stable [id number] William Quintana [facility] [address] [facility],[place] [address] 01/06/2020 09:47:30 01/06/2020 10:27:28 Essential hypertension 44874566 I10 BP is stable and no more lightheade dness with med switch Eczema 73689340 L30.9 will use prn Onychomyco sis of toenails 783887025 B35.1 encouraged to get pedicure [id number] William Quintana [facility] [address] [facility],[place] [address] 05/13/2020 11:48:29 05/13/2020 16:13:39 Gout 46124438 M10.9 Tobacco de pendence syndrome 23635190 F17.200 the patient stopped smoking on his own did not get the patches, so he just quit Transient cerebral ischemia 095255623 G45.9 Diabetes mellitus 246293 09 E11.9 [id number] William Quintana [facility] [address] [facility] [address],[place] [address] 05/31/2020 11:31:14 05/31/2020 12:03:07 Left sided cerebral hemisphere cerebrovascular accident 267242190 I63.9 he has recovered from this and he has quit smoking thank god bp is stable and he is overall doing better has already lost 10 lbs and no sypmptoms remain will cont on plavix for now Type 2 linda betes mellitus 64578058 E11.9 his last test was a1c 6.7 here for rechk and we will follow this and expect it to be better as he has already lost 10 lbs Essential hypertension 09283735 I10 BP is stable and no more lightheade dness with med switch Edema of l ower extremity 555069205 R60.0 Stable no worsenein g [id number] William Quintana [facility] [address] [facility] [address],[place] [employer] [facility] [place] [address] 06/10/2020 09:20:50 06/10/2020 09:46:25 Essential hypertension 88817282 I10 BP is stable and no more lightheade dness no longer having palpitatio ns Diabetes mellitus 551515 09 E11.9 a1c is now down to 6.6 and he is doing significan tly better states is adjusting and is working hard noted that his feet are feeling much better has lost 10lbs so he is really trying still undergoing PT Obstructiv e sleep apnea syndrome 00985773 G47.33 doing ok uses every night only has 2-3 events at night Transient cerebral ischemia 062384931 G45.9 will be seeing neuro dr walker soon has not had any major symptoms as of late cont to work hard to turn things around [id number] William Quintana DO [facility] [address] [facility] [address],[place] [address] 09/16/2020 09:29:16 09/16/2020 13:11:59 Essential hypertension 59603153 I10 BP is stable and no more lightheade dness no longer having palpitatio ns feelings are good no cp no sob Diabetes mellitus 145878 09 E11.9 a1c is now down to 6.3 and was 6.6 and he is doing significan tly better states is adjusting and is working hard noted that his feet are feeling much better had lost 10lbs so he is keping the wgt off Edema of l ower extremity 952961278 R60.0 Stable and is not having any edema right now [id number] William Quintana, [facility] [address] [facility],[place] [address] 12/23/2020 09:43:33 12/23/2020 13:00:52 Essential hypertension 84871100 I10 BP is stable and no more lightheade dness no longer having palpitatio ns feelings are good no cp no sob Diabetes mellitus 641615 09 E11.9 a1c is now 6.7 to 6.3 and was 6.6 and he is doing significan tly better states is adjusting and is working hard noted that his feet are feeling much better had lost 10lbs but gained back Edema of l ower extremity 273492444 R60.0 Stable and is not having any edema right now just at end of the day [id number] William Quintana, [facility] [address] [facility] [address] 03/29/2021 08:30:53 03/29/2021 12:22:43 Diabetes mellitus 10908223 E11.9 a1c is now 6.8 6.7 to 6.3 and was 6.6 and he is doing significan tly better states is adjusting and is working hard noted that his feet are feeling much better had lost 10lbs but gained back Essential hypertension 92035366 I10 BP is stable and no more lightheade dness no longer having palpitatio ns feelings are good no cp no sob Edema of l ower extremity 364198592 R60.0 Stable and is not having any edema right now just at end of the day Gout 92712280 M10.9 stable and not having any outbreaks Tinea pedis 9672319 B35. 3 Eczema 21975921 L30.9 will use prn [id number] William Quintana [facility] [address] [facility],[place] [address] 08/04/2021 14:44:38 08/04/2021 15:33:37 Pre-surgery evaluation 772992255 Z01.818 per the 2017 ACC cardiac risk factor evaluation (revised) he is cleared for the proposed cataract surgery and is considered low riskhe will cont his usual meds as dir Testostero ne level below reference range 371883649 R79.89 refill Renewal of prescription 948916810 Z76.0 Diabetes mellitus 298023 09 E11.9 a1c is now 6.8 6.7 to 6.3 and was 6.6 and he is doing significan tly better states is adjusting and is working hard noted that his feet are feeling much better had lost 10lbs but gained back Left sided cerebral hemisphere cerebrovascular accident 539683099 I63.9 he has recovered from this and he has quit smoking bp is stable and he is overall doing better no sypmptoms remain will cont on plavix for now AMENDMENT: STROKE OCCURED ON 05/08/20; THE DIAGNOSIS WAS ADDED THE DAY OF THE PRE-OP, THE PATIENT DID NOT RECENTLY HAVE A STROKE AND IS STABLE FOR SURGERY [id number] William Quintana [facility] [address] [facility],[place] [address] 11/06/2021 10:28:44 11/06/2021 11:22:37 Diabetes mellitus 43412105 E11.9 a1c is now 6.4 and 6.8 6.7 to 6.3 and was 6.6 and he is doing significan tly better states is adjusting and is working hard noted that his feet are feeling much better had lost 10lbs and kept it off Essential hypertension 91923176 I10 BP is stable and no more lightheade dness no longer having palpitatio ns feelings are good no cp no sob Hypogonadism 55124153 E2 9.1 await results of testostero ne level will call with results Active or passive immunization 797364936 Z41 advised for Tdap. pneumo, shingles [id number] William Quintana DO [facility] [address] [facility],[place] [address] 04/06/2022 11:44:33 04/06/2022 14:56:25 Essential hypertension 13891436 I10 BP is stable and no more lightheade dness no longer having palpitatio ns feelings are good no cp no sob Hypogonadism 71078114 E2 9.1 await results of testostero ne level will call with results Diabetes mellitus 335338 09 E11.9 a1c is now 6.5 and prior 6.4 and 6.8 6.7 to 6.3 and was 6.6 and he is doing significan tly better states is adjusting and is working hard noted that his feet are feeling much better had lost 10lbs and kept it off [id number] William Quintana DO [facility] [address] [facility],[place] [address] 07/04/2022 10:18:43 07/04/2022 11:00:55 Testosterone level below reference range [id number] R79.89 awaiting Diabetes mellitus [id number] a1c is pending 6.5 and prior 6.4 and 6.8 6.7 to 6.3 and was 6.6 and he is doing significan tly better states is adjusting and is working hard noted that his feet are feeling much bettertrul icity 3mg samples given Essential hypertension 46660889 I10 BP is stable and no more lightheade dness no longer having palpitatio ns feelings are good no cp no sob Obstructiv e sleep apnea syndrome [id number] G47.33 doing ok uses every night only has 2-3 events at night Left sided cerebral hemisphere cerebrovascular accident 111851660 I63.9 he has recovered from this and he has quit smoking bp is stable and he is overall doing better no sypmptoms remain will cont on plavix for now AMENDMENT: STROKE OCCURED ON 05/08/20; THE DIAGNOSIS WAS ADDED THE DAY OF THE PRE-OP, THE PATIENT DID NOT RECENTLY HAVE A STROKE AND IS STABLE FOR SURGERY Hepatitis C screening 41 1329087 Z11.59 [facility] Advance care planning 71 7274069 Z71.89 done [id number] William Quintana DO [facility] [address] [facility],[place] [address] 10/15/2022 11:36:58 10/15/2022 12:34:05 Essential hypertension 70008095 I10 BP is stable and no more lightheade dness no longer having palpitatio ns feelings are good no cp no sob Diabetes mellitus 863984 E11. a1c is 6.4 he was 7.1 in june 6.5 and prior 6.4 and 6.8 6.7 to 6.3 and was 6.6 and he is doing significan tly better states is adjusting and is working hard noted that his feet are feeling much better trulicity or ozempic inj will hopefully be ordered by endocrinol ogist Screening for malignant neoplasm of colon 545855698 Z12.11 discussed he will be called Hepatitis C screening 41 3003565 Z11.59 will [facility] [id number] William Quintana [facility] [address] [facility],[place] [address] 02/08/2023 12:00:51 02/08/2023 13:29:26 Hypogonadism 91939419 E29.1 following endocrine Essential hypertension 91271675 I10 BP is stable and no more lightheade dness no longer having palpitatio ns feelings are good no cp no sob Diabetes mellitus a1c is 6.4 he was 7.1 in june 6.5 and prior 6.4 and 6.8 6.7 to 6.3 and was 6.6 and he is doing significan tly better states is adjusting and is working hard noted that his feet are feeling much bettertrul icity or ozempic inj will hopefully be ordered by endocrinol ogist [id number] William Quintana [facility] [address] [facility],[place] [address] 05/08/2023 09:27:17 05/08/2023 10:05:12 Type 2 diabetes mellitus without complication 419298234 E11.9 a1c is 6.4 still doing good Cerebrovas cular accident 234691611 I63.9 quiet and doing ok Diabetes mellitus 395429 09 E11.9 a1c is still 6.4 and [...] by endocrinol ogist Benign pro static hyperplasia 773541625 N40.1 [id number] William Quintana [facility] [address] [facility],[place] [address] 05/20/2023 11:23:41 05/20/2023 12:12:07 Pain in testicle 50613075 N50.811 will need US to confirm hernia vs malignancy cannot exclude either possibilit ypt agrees to plan [id number] William Quintana [facility] [address] [facility],[place] [address] 08/09/2023 09:32:50 08/09/2023 10:22:09 Type 2 diabetes mellitus without complication 603188852 E11.9 a1c is 7.0 still doing good we will rechk in 3 mo Essential hypertension 75413275 I10 BP is stable and no more lightheade dness no longer having palpitatio ns feelings are good no cp no sob Hypogonadism 85242698 E2 9.1 following endocrined oing better with the testostero ne [id number] William Quintana [facility] [address] [facility],[place] [address] 11/20/2023 09:32:12 11/20/2023 10:48:35 Adult health examination 523455325 Z00.00 doing ok no issues Screening for cardiovascular system disease 222161608 Z13.6 stable Screening for malignant neoplasm of colon 185918093 Z12.11 discussed he will be called Depression screening 171 603150 Z13.31 neg 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9 a1c is pending was 6.4 and [...] endocrinol ogist Edema of l ower extremity 198291417 R60.0 Stable and is not having any edema right now just at end of the day Essential hypertension 00220322 I10 BP is stable and no more lightheade dness no longer having palpitatio ns feelings are good no cp no sob Cerebrovas cular accident 928091338 I63.9 quiet and doing ok [id number] William Quintana [facility] [address] [facility],[place] [address] 03/10/2024 12:15:57 03/10/2024 14:30:29 Effusion of olecranon bursa of right elbow 2514937593 739601 M71.821 well eileen aspiration and inj [id number] William Quintana [facility] [address] [facility] [address], [place] [address] 06/03/2024 09:14:41 06/03/2024 09:47:41 Diabetes mellitus 13544590 E11.9 a1c is 6.5 was 6.7 and doing ok states is adjusting and is working hard noted that his feet are feeling much bettertrul icity or ozempic inj will hopefully be ordered by endocrinol ogist Essential hypertension 91863962 I10 BP is stable and no more lightheade dness no longer having palpitatio ns feelings are good no cp no sob Gout 96041863 M10.9 stable and not having any outbreaks Transient ischemia 95810 009 I99.8 now is quiet and asymptomat ic will cont to observe [id number] William Quintana, [facility] [address],[place] [address] 08/21/2024 08:53:13 08/21/2024 09:26:50 Diabetes mellitus 66711007 E11.9 a1c is 6.5 was 6.7 and doing ok states is adjusting and is working hard noted that his feet are feeling much bettertrul icity or ozempic inj will hopefully be ordered by endocrinol ogist Essential hypertension 37807135 I10 BP is stable and no more lightheade dness no longer having palpitatio ns feelings are good no cp no sob Hypogonadism 07112930 E2 9.1 following endocrined oing better with the testostero ne Testostero ne level below reference range 878468476 R79.89 awaiting Depression screening 171 332557 Z13.31 neg Bilateral lower limb edema 326069051 R60.0 will try dyazide prn Health Concerns Section Related Observation LastModified by Organization Detai ls LastModified Time None Recorded Concern Status LastModified by Organization Details LastModified Time None Recorded Advance Directives Directive None Recorded Payers Encounter Date Sequence Insurance Name Policy Number Policy Hernandez Covered Member ID Hernandez Member ID Guarantor Name 11/20/2023 1 [employer]-ID: SECURE [id number] (MEDICARE REPLACEMENT PPO) [id number] Gillespie J Juan Alberto [id number] 003 Gillespie Juan Alberto 02/28/2024 1 [employer]-ID: SECURE [id number] (MEDICARE REPLACEMENT PPO) [id number] Gillespie J Albion [id number] 003 Gillespie Albion 03/10/2024 1 [employer]-ID: SECURE [id number] (MEDICARE REPLACEMENT PPO) [id number] Gillespie J Albion [id number] 003 Gillespie Juan Alberto 06/03/2024 1 [employer]-ID: SECURE BLUE (MEDICARE REPLACEMENT PPO) [id number] Gillespie J Albion [id number] 003 Gillespie Albion 08/21/2024 1 [employer]-ID: [id number] SALAZAR (MEDICARE REPLACEMENT PPO) [id number] Jose Miguel Avendano [id number] 003 Jose Miguel Avendano Notes Date Note Type Note Provider Name and Address Organization Details Recorded Time 4 text/htm l Medicare Annual Wellness VisitReported [...] bathroom/shower; good lighting in the home William QuintanaDO [address] [place] [address], [phone], [facility] 11/20/2023 10:01:18 4 text/htm l [...] late very tender in certain spots William DurantDO darryl [address] [place] [address], [phone], [facility] 02/28/2024 09:39:03 4 text/htm l here for bursa drainage William Mora DO Sophia [address] [place] [address], [phone], [facility] 03/10/2024 12:43:29 5 text/htm l Care Management - DiabetesReported [...] fatigue here for rechk and is doing okrelates that he feels well6.5 a1c was 6.7 William Quintana DO [address] [place], [address], [facility] 06/03/2024 09:41:08 text/htm l Care Management - DiabetesReported bypatient.Self [...] doing well and no major issues William Quintana DO [address] [place], [address], [facility] 08/21/2024 09:25:19
[2024-08-21 13:10] LABS: MANUAL DIFF FLAG NO
[2024-08-21 13:18] LABS: Basophils Absolute Auto 0.1 X10*3/uL (0.0-0.2); Eosinophils Absolute Auto 0.3 X10*3/uL (0.0-0.4); Eosinophils Percent Auto 3.9 % (0-4); Hematocrit 50.7 % (42.0-52.0); Hemoglobin 16.7 g/dl (14.0-18.0); Imm Gran Abs Auto 0.03 X10*3/uL (0.00-0.03); Imm Gran Pct Auto 0.4 % (0.0-0.4); Lymphocytes Absolute Auto 1.7 X10*3/uL (1.2-4.9); Lymphocytes Percent Auto 21.7 % (20-40); Mean Corpuscular HGB Conc 32.9 g/dl (31.0-36.0); Mean Corpuscular Hemoglobin 27.8 pg (27.0-33.0); Mean Corpuscular Volume 84.5 fL (80.0-98.0); Mean Platelet Volume 10.8 fL (9.4-12.4); Monocytes Absolute Auto 0.9 X10*3/uL (0.1-1.2); Monocytes Percent Auto 10.8 % (2-11); Neutrophils Absolute Auto 4.9 x10*3/uL (2.0-8.3); Neutrophils Percent Auto 62.2 % (45-73); Platelet Count 286 X10*3/uL (160-400); Red Cell Distribution Width 15.2 % (11.0-16.0); White Blood Count 7.9 X10*3/uL (4.8-10.8)
[2024-08-21 13:41] LABS: Creatinine Urine 71.99 mg/dL; Microalbum/Creatinine Ratio Ur 216.6 ug/mg cr (<30)
[2024-08-21 14:09] LABS: Alanine Aminotransferase 22 U/L (0-40); Albumin Level 4.1 g/dL (3.5-5.0); Alkaline Phosphatase 85 U/L (39-117); Anion Gap 14 (12-20); Aspartate Amino Transferase 41 U/L (5-37); Bilirubin Total 1.1 mg/dL (0.0-1.0); Blood Urea Nitrogen 14 mg/dL (9-16); Calcium 9.6 mg/dL (8.4-10.2); Carbon Dioxide 22 mmol/L (22-29); Chloride 104 mmol/L (96-108); Cholesterol 106 mg/dL (<200); Estimated Glomerular Filt Rate > 60; Glucose Random 126 mg/dL (60-115); HDL Cholesterol 37 mg/dL (>40); LDL Cholesterol Calculated 58 mg/dL (<100); Potassium 4.1 mmol/L (3.3-5.1); Sodium 136 mmol/L (135-145); Total Protein 7.9 g/dL (6.5-8.0); Triglycerides 58 mg/dL (<150)
== END 2024-08-21 09:27 | disposition home or self-care (01) ==
LOC: HO.MANLDS 09:26
PROVIDERS: Visit Provider Internal Medicine
DX: E11.9 Type 2 diabetes mellitus without complications (principal)
CPT/HCPCS: 36415; 80053; 80061; 82043; 82570; 85025

== ENCOUNTER 2024-11-23 08:19 | Outpatient (REF) | payer MEDICARE, SELFPAY ==
--- OUTSIDE RECORDS SUMMARY | 2024-11-23 08:42 | XMS_ITS | Encounter Summary ---
Author Organization [facility] Address [address] [place] [address] Phone Care Team Providers Care Rn Emergency Room Name Role Phone William Cortes DO Primary Care Provider [phone] Encounter Details Date Type Department Care Team (Late st Contact Info) Description 05/07/2020 Procedure Pass [facility], Ct Scan - [address] [address] Social History Tobacco Use Types Packs/Day Years Used Date Smoking Tobacco: Some Days Cigarettes Smokeless Tobacco: Never Alcohol Use Standard Drinks/Week Comments Yes 10 (1 standard drink = 0.6 oz pu re alcohol) Sex and Gender Information Value Date Recorded Sex Assigned at Not on file Legal Sex Male 10:01 PM EDT Gender Identity Not on file Sexual Orientation Not on file documented as of this encounter Plan of Treatment Not on file documented as of this encounter Visit Diagnoses Not on filedocumented in this encounter Care Teams Rn Emergency Room Relationship Specialty Start Date End Date William Cortes DO PCP - General 01/21/17 documented as of this encounter Additional Source Comments The information contained in this document represents components of the legal health record. It is not the complete legal health record.[facility]
[2024-11-23 13:40] LABS: Hemoglobin A1C 237.2839 umol/L; Total Hemoglobin (HGBA1C) 4080.2257 umol/L
== END 2024-11-23 08:20 | disposition home or self-care (01) ==
LOC: HO.MANLDS 08:19
PROVIDERS: Visit Provider Internal Medicine
DX: E11.9 Type 2 diabetes mellitus without complications (principal)
CPT/HCPCS: 36415; 83036

== ENCOUNTER 2025-03-19 10:20 | Outpatient (REF) | payer MEDICARE, SELFPAY | END 2025-03-19 10:21 | disposition home or self-care (01) | LOC: HO.MANLDS 10:20 | PROVIDERS: Visit Provider Internal Medicine | DX: E11.9 Type 2 diabetes mellitus without complications (principal) | CPT/HCPCS: 36415; 83036 ==